=== PATIENT | female | born 1960 | race Caucasian/White ===

== ENCOUNTER 2020-12-27 19:57 | Emergency (ER) | payer MEDICAID, SELFPAY ==
--- NOTE | ~2020-12-27 | CT_ITS ---
EXAMINATION: CT ABDOMEN AND PELVIS WITHOUT CONTRAST CLINICAL INFORMATION: Right-sided abdominal pain COMPARISON: None TECHNIQUE: Multidetector volumetric imaging was performed from the superior aspect of the liver through the pubic symphysis. Sagittal and coronal reformatted images were obtained on the technologist's workstation. This CT examination was performed using dose optimization techniques as appropriate, variously including the following: *Automated exposure control *Adjustment of mA and/or kV according to patient size (this includes techniques or standardized protocols for targeted exams where dose is matched to indication/reason for exam; i.e. extremities or head) *Use of iterative reconstruction technique DLP: 1045 mGy-cm FINDINGS: LUNG BASES: Status post median sternotomy. Marked coronary calcification is present. No lung masses nodules or pleural effusions are seen. LIVER, GALLBLADDER, AND BILIARY TREE: The liver is normal in size, shape, and attenuation. No focal hepatic lesion or biliary ductal dilatation is present. The gallbladder is unremarkable with no evidence of radiopaque gallstones, gallbladder wall thickening, or obvious pericholecystic inflammatory changes. PANCREAS: Unremarkable. SPLEEN: Unremarkable. ADRENAL GLANDS: Unremarkable. KIDNEYS AND URETERS: There is a 2 mm mildly obstructing stone present in the distal left ureter at the ureterovesical junction. There is mild to moderate right-sided hydronephrosis. Within the right kidney there is a nonobstructing mid to lower pole 2 mm calculus present. No right-sided renal masses are seen. The left kidney and ureter appears normal. Some left-sided parapelvic cysts are most likely present. BLADDER: Unremarkable. GASTROINTESTINAL TRACT: The small and large bowel are unremarkable. A few colonic diverticula are present. The appendix is unremarkable. ABDOMINAL WALL: No significant hernia is appreciated. LYMPH NODES: No retroperitoneal lymphadenopathy seen. VASCULAR: Unremarkable. PELVIC VISCERA: An anteverted uterus is present. A small punctate calcification near the fundus on the right could be related to a fibroid. An abnormal adnexal mass or free intraperitoneal fluid is not present. OSSEOUS STRUCTURES: There is grade 2 anterolisthesis with forward slippage of L5 upon S1 with bilateral pars interarticularis defects at L5. CT/CT abdomen pelvis wo con IMPRESSION: 1. Tiny 2 mm obstructing right distal ureteral calculus with associated mild hydronephrosis. There is a nonobstructing additional 2 mm calculus in the right kidney. 2. Incidentally noted coronary calcification, median sternotomy, colonic diverticula, possible fibroid and grade 2 anterolisthesis of L5 upon S1.
[2020-12-27 20:12] VITALS: BP 118/86; BP 143/75; PULSE 69; PULSE 77; RESP 18; TEMP 36.7; O2SAT 96; O2SAT 98; BMI 37.0
--- NOTE | 2020-12-27 20:21 | ED.ABDPAIN ---
HPI - Abdominal Pain General Chief Complaint: Abdominal Pain Stated Complaint: abdominal pain Time Seen by Provider: 12/27/20 20:21 Source: patient Mode of arrival: ambulatory Limitations: no limitations History of Present Illness HPI narrative: Patient with right hemiparesis from CVA came from long-term for an acute onset of right mid abdominal pain started 17:00 sharp in character associated with nausea after arrival in the ER patient vomited 1 time patient never had similar pain in the past no history of gallstone or kidney stone no diarrhea no fever no chills or fever no urinary complaints Related Data Previous Rx's Medication Instructions Recorded oxycodone 5 mg tablet 5 mg PO Q6H PRN #20 tab 12/28/20 Allergies Allergy/AdvReac Type Severity Reaction Status Date / Time Penicillins Allergy Mild RASH Verified 12/27/20 20:11 Review of Systems Review of Systems Yes all other systems are reviewed and are negative Physical Exam Vital Signs: Vital Signs: Last Vital Signs Temp 98.1 F 12/27/20 20:12 Pulse 83 12/27/20 23:11 Resp 16 12/27/20 23:11 BP 116/64 12/27/20 23:11 Pulse Ox 95 12/27/20 23:11 Body Mass Index 37.0 Appearance: Alert. Oriented X3. No acute distress. Eyes: PERRLA, No Nystagmus ENT: Pharynx normal. Oral Mucosa moist Neck: Normal inspection. Neck supple. CVS: Normal heart rate and rhythm. Pulses normal. Respiratory: No respiratory distress. Equal air entry bilateral, no wheezing/rales/rhonchi Abdomen: Soft , tenderness right mid abdomen no rebound tenderness or guarding Bowel sounds are present, no mass palpable, mild right CVA tenderness Skin: Skin warm and dry. Normal skin color. Normal skin turgor. Extremities: No lower extremity edema. No calf tenderness Neuro: Oriented X 3. MDM - Abdominal Pain MDM Narrative Medical decision making narrative: Patient feeling much better now no pain at all unable to get the urine sample as she urinated in her depends only 2 mm distal right ureteric stone likely she passed will discharge patient back to long-term Differential Diagnosis Differential diagnosis: Likely acute appendicitis, calculus of kidney and diverticulitis Medical Records Attestation: I reviewed the patient's medical records. Lab Data Attestation: I reviewed the patient's lab results. Result diagrams: 12/27/20 20:55 12/27/20 20:55 Labs: Lab Results 12/27/20 12/27/20 Range/Units 20:55 20:55 WBC 13.4 H (4.8-10.8) X10*3/uL RBC 5.40 (4.20-5.50) X10*6/uL Hgb 15.5 (12.0-16.0) g/dl Hct 46.3 (37-47) % MCV 85.7 (80-98) fL MCH 28.7 (27.0-33.0) pg MCHC 33.5 (31.0-35.0) g/dl RDW 13.0 (11.0-16.0) % Plt Count 261 (160-400) X10*3/uL MPV 10.1 (9.4-12.3) fL Immature Gran % (Auto) 0.2 (0.0-0.4) % Neut % (Auto) 87.3 H (45-73) % Lymph % (Auto) 8.1 L (20-40) % Martin % (Auto) 3.9 (2-11) % Eos % (Auto) 0.2 (0-4) % Baso % (Auto) 0.3 (0-2) % Lymph # (Auto) 1.1 L (1.2-4.9) X10*3/uL Martin # (Auto) 0.5 (0.1-1.2) X10*3/uL Eos # (Auto) 0.0 (0.0-0.4) X10*3/uL Baso # (Auto) 0.0 (0.0-0.2) X10*3/uL Abs Immat Gran (auto) 0.03 (0.00-0.03) X10*3/uL Absolute Neuts (auto) 11.7 H (2.0-8.3) X10*3/uL Absolute Nucleated RBC 0.000 (0.0-0.012) X10*3/uL Nucleated RBC % (auto) 0.0 (0.0-0.2) /100WBC Sodium 140 (135-145) mmol/L Potassium 3.9 (3.3-5.1) mmol/L Chloride 105 (96-108) mmol/L Carbon Dioxide 25 (22-29) mmol/L Anion Gap 14 (12-20) BUN 20 H (9-16) mg/dL Creatinine 0.78 (0.5-1.4) mg/dL Estim Creat Clear Calc 78.9 Estimated GFR > 60 Random Glucose 106 (60-115) mg/dL Calcium 9.6 (8.4-10.2) mg/dL Total Bilirubin 1.4 H (0.0-1.0) mg/dL AST 18 (5-31) U/L ALT 20 (0-31) U/L Alkaline Phosphatase 124 H (39-117) U/L Total Protein 6.6 (6.5-8.0) g/dL Albumin 4.2 (3.5-5.0) g/dL Lipase 11 (8-78) U/L Imaging Data CT scan - abdomen: Radiologist's impression: [place] [id number] CT Scan Report Signed Patient: Rach Bettencourt MR#: [id number] : 1960 Acct:[id number] Age/Sex: 60 / F ADM Date: 12/27/20 Loc: HO.ED Attending Dr: Ordering Physician: Flaco Allred MD Date of Service: 12/27/20 Procedure(s): CT abdomen pelvis wo con Accession Number(s): [id number] cc: Flaco Allred MD~ EXAMINATION: CT ABDOMEN AND PELVIS WITHOUT CONTRAST? CLINICAL INFORMATION: Right-sided abdominal pain? COMPARISON: None? TECHNIQUE: Multidetector volumetric imaging was performed from the superior aspect of the liver through the pubic symphysis. Sagittal and coronal reformatted images were obtained on the technologist's workstation.? This CT examination was performed using dose optimization techniques as appropriate, variously including the following: *Automated exposure control *Adjustment of mA and/or kV according to patient size (this includes techniques or standardized protocols for targeted exams where dose is matched to indication/reason for exam; i.e. extremities or head) *Use of iterative reconstruction technique DLP: 1045 mGy-cm FINDINGS: LUNG BASES: Status post median sternotomy. Marked coronary calcification is present. No lung masses nodules or pleural effusions are seen.? LIVER, GALLBLADDER, AND BILIARY TREE: The liver is normal in size, shape, and attenuation. No focal hepatic lesion or biliary ductal dilatation is present. The gallbladder is unremarkable with no evidence of radiopaque gallstones, gallbladder wall thickening, or obvious pericholecystic inflammatory changes.? PANCREAS: Unremarkable.? SPLEEN: Unremarkable.? ADRENAL GLANDS: Unremarkable.? KIDNEYS AND URETERS: There is a 2 mm mildly obstructing stone present in the distal left ureter at the ureterovesical junction. There is mild to moderate right-sided hydronephrosis. Within the right kidney there is a nonobstructing mid to lower pole 2 mm calculus present. No right-sided renal masses are seen. The left kidney and ureter appears normal. Some left-sided parapelvic cysts are most likely present. BLADDER: Unremarkable.? GASTROINTESTINAL TRACT: The small and large bowel are unremarkable. A few colonic diverticula are present. The appendix is unremarkable.? ABDOMINAL WALL: No significant hernia is appreciated.? LYMPH NODES: No retroperitoneal lymphadenopathy seen. VASCULAR: Unremarkable. PELVIC VISCERA: An anteverted uterus is present. A small punctate calcification near the fundus on the right could be related to a fibroid. An abnormal adnexal mass or free intraperitoneal fluid is not present.? OSSEOUS STRUCTURES: There is grade 2 anterolisthesis with forward slippage of L5 upon S1 with bilateral pars interarticularis defects at L5.? CT/CT abdomen pelvis wo con IMPRESSION: 1.? Tiny 2 mm obstructing right distal ureteral calculus with associated mild hydronephrosis. There is a nonobstructing additional 2 mm calculus in the right kidney. 2.? Incidentally noted coronary calcification, median sternotomy, colonic diverticula, possible fibroid and grade 2 anterolisthesis of L5 upon S1.? Dictated By: TARA HARRELL MD Signed By: <Electronically signed by TARA HARRELL MD in OV> Discharge Plan Discharge Clinical Impression: Renal colic on right side Patient Disposition: Xfer SNF Transfer Details: To long-term Instructions: Renal Colic (ED) Additional Instructions: You have pain on the right side from 2 mm kidney stone which likely passed. Drink plenty of fluids. If pain comes back take pain medications. Follow-up with urologist if pain continues Prescriptions: New oxycodone 5 mg tablet 5 mg PO Q6H PRN (Reason: Pain (Scale Score 7-10)) Qty: 20 RF: 0 PMFSH Past Medical History Medical History CVA (cerebral vascular accident) Depression High cholesterol Past heart attack Surgical History Hx of tonsillectomy Social History Social History Alcohol intake: former Patient Tobacco Use Status: Former Tobacco user Advance Directives: No Advance Directives Information Provided: No Patient : No
[2020-12-27 21:01] LABS: Basophils Percent Auto 0.3 % (0-2); Eosinophils Percent Auto 0.2 % (0-4); Hematocrit 46.3 % (37-47); Hemoglobin 15.5 g/dl (12.0-16.0); Imm Gran Abs Auto 0.03 X10*3/uL (0.00-0.03); Imm Gran Pct Auto 0.2 % (0.0-0.4); Lymphocytes Absolute Auto 1.1 X10*3/uL (1.2-4.9); Lymphocytes Percent Auto 8.1 % (20-40); MANUAL DIFF FLAG NO; Mean Corpuscular HGB Conc 33.5 g/dl (31.0-35.0); Mean Corpuscular Hemoglobin 28.7 pg (27.0-33.0); Mean Corpuscular Volume 85.7 fL (80-98); Mean Platelet Volume 10.1 fL (9.4-12.3); Monocytes Absolute Auto 0.5 X10*3/uL (0.1-1.2); Monocytes Percent Auto 3.9 % (2-11); Neutrophils Absolute Auto 11.7 X10*3/uL (2.0-8.3); Neutrophils Percent Auto 87.3 % (45-73); Platelet Count 261 X10*3/uL (160-400); White Blood Count 13.4 X10*3/uL (4.8-10.8)
[2020-12-27] MEDS: 0.9 % Sodium Chloride 1,000 ML 999 ML IVCONT ×2 (21:02→23:06)
[2020-12-27] MEDS: ondansetron HCL 4 MG/2 ML VIAL IVPUSH (21:14)
[2020-12-27] MEDS: Morphine Sulfate 4 MG/ML CARTRIDGE IVPUSH (21:16)
[2020-12-27 21:37] LABS: Alanine Aminotransferase 20 U/L (0-31); Albumin Level 4.2 g/dL (3.5-5.0); Alkaline Phosphatase 124 U/L (39-117); Anion Gap 14 (12-20); Aspartate Amino Transferase 18 U/L (5-31); Bilirubin Total 1.4 mg/dL (0.0-1.0); Blood Urea Nitrogen 20 mg/dL (9-16); Calcium 9.6 mg/dL (8.4-10.2); Carbon Dioxide 25 mmol/L (22-29); Chloride 105 mmol/L (96-108); Creatinine Clr Calc Pharmacy 78.9; Estimated Glomerular Filt Rate > 60; Glucose Random 106 mg/dL (60-115); Lipase 11 U/L (8-78); Potassium 3.9 mmol/L (3.3-5.1); Sodium 140 mmol/L (135-145); Total Protein 6.6 g/dL (6.5-8.0)
--- NOTE | 2020-12-27 21:50 | PC.NURSE ---
Friend Cathryn #[phone] - would like phone call if pt is going to stay in the hospital
[2020-12-27] MEDS: Tamsulosin HCL 0.4 MG CAPSULE PO (22:29)
[2020-12-27] MEDS: Ketorolac Tromethamine 15 MG/ML VIAL IVPUSH (22:29)
[2020-12-27 23:11] VITALS: BP 116/64; PULSE 83; RESP 16; O2SAT 95
--- NOTE | 2020-12-28 01:05 | PC.NURSE ---
Pt is resting comfortable in bed and denies any pain at this time. pt is awaiting to be discharge back to facility.
[2020-12-28 01:15] VITALS: BP 111/75; PULSE 83; RESP 20; O2SAT 98
== END 2020-12-28 01:34 | disposition skilled nursing facility (03) ==
PROVIDERS: Emergency Provider Internal Medicine; PCP Family Medicine
DX: N23 Unspecified renal colic (principal); I69.351 Hemiplegia and hemiparesis following cerebral infarction affecting right dominant side
CPT/HCPCS: 36415; 74176; 80053; 83690; 85025; 96361; 96374; 96375; 99284; 99285; J1885; J2270; J2405

== ENCOUNTER 2021-10-26 11:53 | Outpatient (REF) | payer OTHER, SELFPAY ==
[2021-10-26 12:09] LABS: MANUAL DIFF FLAG NO
[2021-10-26 12:42] LABS: Basophils Absolute Auto 0.1 X10*3/uL (0.0-0.2); Basophils Percent Auto 0.7 % (0-2); Eosinophils Absolute Auto 0.1 X10*3/uL (0.0-0.4); Eosinophils Percent Auto 1.2 % (0-4); Hematocrit 44.7 % (37.0-47.0); Hemoglobin 14.6 g/dl (12.0-16.0); Imm Gran Abs Auto 0.03 X10*3/uL (0.00-0.03); Imm Gran Pct Auto 0.4 % (0.0-0.4); Lymphocytes Absolute Auto 1.7 X10*3/uL (1.2-4.9); Lymphocytes Percent Auto 21.4 % (20-40); Mean Corpuscular HGB Conc 32.7 g/dl (31.0-35.0); Mean Corpuscular Hemoglobin 28.6 pg (27.0-33.0); Mean Corpuscular Volume 87.6 fL (80.0-98.0); Mean Platelet Volume 10.7 fL (9.4-12.3); Monocytes Absolute Auto 0.5 X10*3/uL (0.1-1.2); Monocytes Percent Auto 5.5 % (2-11); Neutrophils Absolute Auto 5.8 x10*3/uL (2.0-8.3); Neutrophils Percent Auto 70.8 % (45-73); Platelet Count 236 X10*3/uL (160-400); Red Cell Distribution Width 13.8 % (11.0-16.0); White Blood Count 8.1 X10*3/uL (4.8-10.8)
[2021-10-26 12:58] LABS: Alanine Aminotransferase 16 U/L (0-31); Albumin Level 4.1 g/dL (3.5-5.0); Alkaline Phosphatase 128 U/L (39-117); Anion Gap 11 (12-20); Aspartate Amino Transferase 15 U/L (5-31); Bilirubin Total 1.1 mg/dL (0.0-1.0); Blood Urea Nitrogen 16 mg/dL (9-16); Calcium 9.4 mg/dL (8.4-10.2); Carbon Dioxide 27 mmol/L (22-29); Chloride 108 mmol/L (96-108); Cholesterol 159 mg/dL; Estimated Glomerular Filt Rate > 60; Glucose Fasting 87 mg/dL (60-99); HDL Cholesterol 58 mg/dL; LDL Cholesterol Calculated 76 mg/dl; Potassium 4.4 mmol/L (3.3-5.1); Sodium 142 mmol/L (135-145); Total Protein 6.4 g/dL (6.5-8.0); Triglycerides 126 mg/dL
[2021-10-26 13:10] LABS: Prothrombin Time 11.1 SEC (10.0-13.1)
[2021-10-26 13:22] LABS: TSH reflex Free T4 1.84 uIU/mL (0.32-4.0)
[2021-10-26 14:28] LABS: Appearance Urine HAZY; Color Urine YELLOW; Glucose Urine UA NEG (NEG); Leukocyte Esterase Urine NEG (NEG); Nitrite Urine NEG (NEG); Specific Gravity - Urine 1.025 (1.005-1.025); UACC Culture Trigger NO; Urine Blood TRACE (NEG); Urine Ketones NEG (NEG); Urine Protein NEG (NEG-TRACE)
[2021-10-26 14:35] LABS: Bacteria Urine 3+ /LPF; Squamous Epithelial Cell Urine 4+ /LPF
[2021-10-26 14:36] LABS: RBC Urine 0-2 /HPF (0); WBC Urine 0 /HPF (0-4)
[2021-11-01 16:22] LABS: Vitamin D 25-OH, D2 <4 ng/mL; Vitamin D 25-OH, D3 17 ng/mL; Vitamin D 25-OH, Total 17 ng/mL (30-100)
== END 2021-10-26 11:54 | disposition home or self-care (01) ==
LOC: HO.LAB 11:53
PROVIDERS: PCP Nurse Practitioner Family; Visit Provider Nurse Practitioner Family
DX: R58 Hemorrhage, not elsewhere classified (principal); N32.81 Overactive bladder; I25.10 Atherosclerotic heart disease of native coronary artery without angina pectoris; Z13.29 Encounter for screening for other suspected endocrine disorder; Z13.1 Encounter for screening for diabetes mellitus; Z76.89 Persons encountering health services in other specified circumstances
CPT/HCPCS: 36415; 80053; 80061; 81001; 82306; 84443; 85025; 85610

== ENCOUNTER 2021-11-27 12:48 | Outpatient (REF) | payer OTHER, SELFPAY ==
--- NOTE | ~2021-11-27 | MM_ITS ---
EXAMINATION: BONE DENSITOMETRY CLINICAL INDICATION: Asymptomatic menopausal state. COMPARISON: None (current study represents initial baseline exam). TECHNIQUE: Using a [employer] DXA System (software version: 13.1) manufactured by [employer], dual-energy x-ray absorptiometry was performed of the lumbar spine and left hip. The images are of good technical quality. Summary results are attached. FINDINGS: AP SPINE L1-L4: BMD 0.946 g/cm2, Z-score -1.3, T-score -2.0, osteopenia. LEFT FEMUR, NECK: BMD 0.771 g/cm2, Z-score -1.1, T-score -1.9, osteopenia. LEFT FEMUR, TOTAL: BMD 0.863 g/cm2, Z-score -0.6, T-score -1.1, osteopenia. IDENTIFIED RISK FACTORS: Menopause. HISTORY OF FRACTURE: None listed. MEDICATIONS: None listed. MM/XR DEXA axial skeleton IMPRESSION: 1. DIAGNOSIS: Osteopenia based on the lowest T-score value of -2.0 in the lumbar spine applying World Health Organization criteria. 2. 10-YEAR FRACTURE RISK PREDICTION, FRAX: Major osteoporotic fracture (clinical spine, forearm, hip or shoulder) 9.2%. Hip fracture 1.1%. 3. Treatment Recommendations: NOF guidelines recommend consideration for treatment in postmenopausal women and men age 50 and older presenting with the following: -A hip or vertebral (clinical or morphometric) fracture. -T-score less than or equal to -2.5 at the femoral neck or spine after appropriate evaluation to exclude secondary causes. -Low bone mass at the hip or spine and a 10-year fracture probability by FRAX of greater than or equal to 3% for hip fracture or greater than or equal to 20% for major osteoporotic fracture based on the [place] adapted WHO algorithm. 4. Other Recommendations: All treatment decisions require clinical judgment and consideration of individual patient factors, including patient preferences, comorbidities, previous drug use, risk factors not captured in the FRAX model (e.g. frailty, falls, vitamin D deficiency, increased bone turnover, interval significant decline in bone density) and possible under or overestimation of fracture risk by FRAX. Additional medical evaluation for secondary cause of low bone mineral density may be appropriate. FUTURE SCAN RECOMMENDATION: People with diagnosed cases of osteoporosis or at high risk for fracture should have regular bone mineral density tests. For patients eligible for Medicare, routine testing is allowed once every 2 years. The testing frequency can be increased to one year for patients who have rapidly progressing disease, those who are receiving or discontinuing medical therapy to restore bone mass, or have additional risk factors.
--- NOTE | ~2021-11-27 | MM_ITS ---
EXAMINATION: MM SCREENING DIGITAL BREAST TOMOSYNTHESIS, BILATERAL CLINICAL INFORMATION: Screening. Asymptomatic. The lifetime risk of breast cancer based on the Tyrer-Cuzick Model is 7.0%. COMPARISON: Mammography: December 26, 2015 and October 13, 2014 TECHNIQUE: Digital breast tomosynthesis is performed in both the craniocaudal and mediolateral oblique views along with computer-aided detection (CAD). Synthesized 2D images are generated from the tomosynthesis. FINDINGS: The breasts are almost entirely fatty (ACR BI-RADS breast composition Category a). There are no significant masses, abnormal calcifications, or other abnormalities. MM/MM tomosynthesis screening BI IMPRESSION: There are no significant changes from prior study. ASSESSMENT: BI-RADS 1: Negative RECOMMENDATION: Routine annual mammography screening. This patient's information was entered into a reminder system with a target due date for their next mammogram.
== END 2021-11-27 12:49 | disposition home or self-care (01) ==
LOC: HO.MAMMO 12:48
PROVIDERS: PCP Nurse Practitioner Family; Visit Provider Nurse Practitioner Family
DX: Z12.31 Encounter for screening mammogram for malignant neoplasm of breast (principal); Z13.820 Encounter for screening for osteoporosis; Z78.0 Asymptomatic menopausal state
CPT/HCPCS: 77063; 77067; 77080

== ENCOUNTER → 2021-12-27 10:46 | Outpatient (BNVA) | payer OTHER, SELFPAY | PROVIDERS: PCP Nurse Practitioner Family; Referring Provider Nurse Practitioner Family; Visit Provider Internal Medicine | DX: I25.10 Atherosclerotic heart disease of native coronary artery without angina pectoris (principal); I21.19 ST elevation (STEMI) myocardial infarction involving other coronary artery of inferior wall; I63.9 Cerebral infarction, unspecified; Z95.1 Presence of aortocoronary bypass graft | CPT/HCPCS: 93005; 99202 ==

== ENCOUNTER → 2022-01-30 12:54 | Outpatient (REF) | payer MEDICARE, MEDICAID, SELFPAY ==
--- NOTE | 2022-01-30 12:58 | CA_ITS ---
Transthoracic Echocardiogram Patient (Last, First, Middle): Rach Bettencourt M Gender: Female Date of : 1960 Age: 61 Procedure Date: 01/30/2022 Procedure Type: Transthoracic Echocardiogram Location: OP Height: 154.94 cm Weight: 89.36 kg BSA: 1.88 m2 Heart Rate: bpm BP: 118 / 65 mmHg Health Screener: TO Referring MD: Markie Ortega MD Line Technician: Quoc Hernandez MD Symptoms: I25.10 - Atherosclerotic heart disease of [place] coronary artery without... Study Quality: Fair/Contrast ECG Rhythm: Sinus Conclusions: - 1. [id number] LV systolic dysfunction with LVEF of 40-45% with grade 2 diastolic dysfunction with underlying wall motion abnormality suggestive prior myocardial infarction and consistent with ischemic cardiomyopathy 2. Mild mitral regurgitation 3. Normal RV systolic pressure 4. No gross pericardial effusion Findings Procedure Information Contrast agent, definity, is being given per protocol without apparent complications. Left Ventricle Normal left ventricular cavity size. There is normal left ventricular wall thickness. The left ventricular systolic function is mild to moderately decreased. The visually estimated ejection fraction is between 40-45%. Spectral Doppler is indicative of a pseudonormal filling pattern. Elevated left atrial and left ventricular end-diastolic pressures. E/E prime ratio is >15, consistent with elevated filling pressures. Evidence suggests grade II (moderate) diastolic dysfunction. Wall Motion Rest Echo Findings The entire septum, the basal inferior, and mid inferior segments are akinetic. All other scored wall segments showed normal motion. Right Ventricle Normal right ventricular cavity size. There is mildly decreased right ventricular systolic function. Atria The left atrium is normal in size. There is no evidence of interatrial shunt. The right atrium is normal in size. Aortic Valve There is mild thickening of the aortic valve. There is no aortic valve stenosis. There is no aortic valve regurgitation. Mitral Valve There is mild anterior and posterior mitral leaflet thickening. There is mild mitral valve regurgitation. There is no mitral valve stenosis. Pulmonic Valve The pulmonic valve was not well visualized. Tricuspid Valve Likely normal tricuspid valve structure and function. Great Vessels All visible segments of the aorta are normal in size. The pulmonary artery was not well visualized. Small plaque is seen in the ascending aorta. Venous The inferior vena cava is normal in size and collapses greater than 50% with inspiration. Pericardium/Pleural There is no evidence of pericardial effusion. Prior Study Comparison No prior study available for comparison. Measurements 2D Linear Measurements IVSd: 0.73 0.6-0.9/0.6-1.0 cm LVIDd: 4.80 3.9-5.3/4.2-5.9 cm LVIDd Index: 2.55 2.4-3.2/2.2-3.1 cm/m2 LVIDs: 3.51 2.0-3.6 cm LVPWd: 1.03 0.7-1.1 cm LA Diam: 4.00 2.7-3.8/3.0-4.0 cm LAIDs Index: 2.13 1.5-2.3 cm/m2 LV Mass: 178.31 67-162/88-224 g LV Mass Index: 94.84 43-95/49-115 g/m2 LVOT Diam: 2.00 3.0+(-)1.3 cm 2D Systolic Function EF 4C: 43.30 >55% EF BiP: 43.00 >55% Mitral Valve MV Pk E: 1.01 MV PK A: 0.63 MV Decel Time: 248.00 E/A: 1.60 E'Lateral: 8.16 E'Medial: 6.53 E/E' Med: 15.50 E/E' Lat: 12.40 PHT: 73.00 MVA PHT: 3.01 Decel Charl[place]: 4.07 Aortic Valve AoV Pk Igor: 1.51 AoV Mn Igor: 1.01 AoV VTI: 0.36 AoV Pk Grad: 9.00 Aov Mn Grad: 5.00 MANJINDER Cont.VTI: 2.34 LVOT LVOT Pk Igor: 1.16 LVOT Mn Igor: 0.76 LVOT VTI: 0.26 LVOT Pk Grad: 5.00 LVOT Mn Grad: 3.00 LVOT Diam: 2.00 LVOT Area: 3.14 Diastolic Function MV Pk E: 1.01 MV Pk A: 0.63 E/A: 1.60 E'Medial: 6.53 E/E' Med: 15.50 E' Laterial: 8.16 E/E' Lat: 12.40 Right Ventricle TAPSE (mm): 14.20 TVS' Igor: 7.83 Tricuspid Valve TR Pk Igor: 1.64 TR Pk Grad: 11.00 RA Press: 3.00 RVSP: 14.00 Great Vessels Aorta Sinus of Valsalva: 2.69 2.0-3.5 cm Ao Asc: 2.50 2.1-3.4 cm Updated in Other Vendor System with Status of Final Quoc Hernandez MD electronically signed on 01/30/2022 6:30:46 PM with status of Final
== END ==
LOC: HO.CARD 12:54
PROVIDERS: Visit Provider Internal Medicine
DX: I25.10 Atherosclerotic heart disease of native coronary artery without angina pectoris (principal)
CPT/HCPCS: 93306; Q9957

== ENCOUNTER → 2022-02-11 13:48 | Outpatient (BNVA) | payer MEDICARE, MEDICAID, SELFPAY | PROVIDERS: PCP Nurse Practitioner Family; Referring Provider Nurse Practitioner Family; Visit Provider Internal Medicine | DX: I25.5 Ischemic cardiomyopathy (principal); I25.10 Atherosclerotic heart disease of native coronary artery without angina pectoris; I21.19 ST elevation (STEMI) myocardial infarction involving other coronary artery of inferior wall; Z95.1 Presence of aortocoronary bypass graft; I63.9 Cerebral infarction, unspecified | CPT/HCPCS: 99212 ==

== ENCOUNTER → 2022-08-14 14:10 | Outpatient (BNVA) | payer MEDICARE, MEDICAID, SELFPAY | PROVIDERS: PCP Nurse Practitioner Family; Referring Provider Nurse Practitioner Family; Visit Provider Internal Medicine | DX: I25.5 Ischemic cardiomyopathy (principal); I21.19 ST elevation (STEMI) myocardial infarction involving other coronary artery of inferior wall; I25.10 Atherosclerotic heart disease of native coronary artery without angina pectoris; I65.23 Occlusion and stenosis of bilateral carotid arteries; I63.9 Cerebral infarction, unspecified; Z87.891 Personal history of nicotine dependence; Z98.890 Other specified postprocedural states; Z95.1 Presence of aortocoronary bypass graft | CPT/HCPCS: 99212 ==

== ENCOUNTER 2023-01-10 10:45 | Outpatient (AMB) | payer MEDICARE, MEDICAID, SELFPAY ==
[2023-01-10 10:47] VITALS: BP 100/68; PULSE 62; O2SAT 99
--- NOTE | 2023-01-10 10:47 | AM.OFFVISMDC ---
Intake Vital Signs 01/10/23 10:47 Height 5 ft 2 in BMI Reason not done Patient refused/unable BP 100/68 Blood Pressure Location Lt brachial Position Sitting Pulse 62 Pulse Source Pulse Oximeter Temp Source Skin Pulse Oximetry (%) 99 Oxygen Delivery Method Room Air Intake Visit Reasons: AWV Intake Note: Patient is here for an Annual Wellness Visit. Director Experimental Medicine Required: No Allergies Penicillins Allergy (Mild, Verified 01/10/23 11:10) RASH Medication List - Last Reconciled 01/10/23 by ELENA Moe aspirin (Adult Low Dose Aspirin) 81 mg PO DAILY atorvastatin 80 mg PO BEDTIME bisoprolol fumarate 2.5 mg (1/2 x 5 mg) PO DAILY calcium carbonate (Oyster Shell Calcium) 500 mg PO DAILY 90 days cholecalciferol (vitamin D3) 50 mcg PO DAILY losartan 25 mg PO DAILY miscellaneous medical supply 2 ea miscellaneous DAILY miscellaneous medical supply 1 ea miscellaneous DAILY miscellaneous medical supply 1 ea miscellaneous DAILY oxybutynin chloride ER 5 mg PO DAILY pantoprazole 40 mg PO DAILY sertraline 100 mg PO DAILY tizanidine 4 mg PO BID PRN HPI AWV HPI Details Patient is a 62-year-old female who presents today for initial wellness visit. Today we discussed patient's need for tetanus vaccine, patient has declined. Also discussed need for mammogram, cervical cancer screening, colon cancer screening, and diabetes screening-patient has order and she was encouraged to complete her fasting blood work. Bone density screen 11/2021 which showed osteopenia. [place] of care was reviewed with the patient and she was provided with a screening schedule. Patient has a healthcare proxy in place and she was provided with a MOLST form. [facility] Medical History Conjunctivitis ST elevation myocardial infarction (STEMI) of inferior wall Atherosclerotic cardiovascular disease Ecchymosis Encounter to establish care Depression High cholesterol Past heart attack CVA (cerebral vascular accident) Surgical History Status post aorto-coronary artery bypass graft Hx of tonsillectomy Family History Mother No problems noted. Father Heart attack Social History Housing: Apartment Alcohol intake: former Patient Tobacco Use Status: Former Tobacco user e-Cigarette/Vaping Use: Never Used service: No Current occupational status: disabled Cognitive needs: Yes (wheelchair) Hearing needs: No Vision needs: Yes (glasses) Questionnaire Medicare Wellness Checkup What [age] 65-67 What gender do you identify with?: female During the past 4 weeks, how much have you been bothered by emotional problems such as feeling anxious, depressed, irritable, sad or downhearted, and blue?: not at all During the past 4 weeks, has your physical & emotional health limited your social activities with family, friends, neighbors, or groups?: not at all During the past 4 weeks, how much bodily pain have you generally had?: very mild pain (right side ) During the past 4 weeks, was someone available to help you if you needed & wanted help?: yes, as much as I wanted During the past 4 weeks, what was the hardest physical activity you could do for at least 2 minutes?: very light Can you get to places out of walking distance without help? (For eg., can you travel alone on buses, taxis or drive your car?): No Can you go shopping for groceries or clothes without someone's help?: No Can you prepare your own meals?: No Can you do your housework without help?: No Because of any health problems, do you need the help of another person with your personal care needs such as eating, bathing, dressing or getting around the house?: Yes Can you handle your own money without help?: No During the past 4 weeks, how would you rate your health in general?: very good During the past 4 weeks how have things been going for you?: very well; could hardly better Do you always fasten your seat belt when you are in a car?: yes, usually During past 4 weeks, have you been bothered by the following: never: Falling or dizzy when standing up, Sexual problems?, Trouble eating well?, Teeth or denture problems?, Problems using the telephone? and Tiredness or fatigue? Have you fallen 2 or more times in the past year?: No Are you afraid of falling?: No Are you a smoker?: no During the past 4 weeks, how many drinks of wine, beer, or other alcoholic beverages did you have?: no alcohol at all Do you exercise for about 20 minutes 3 or more times a week?: no, I usually do not exercise this much Have you been given information to help with the following?: no: Hazards in your house that might hurt you? and no: Keeping track of your medications? How confident are you that you can control & manage most of your health problems?: very confident What is your race?: White Mini Mental State Exam (MMSE) Orientation What is the (year) (season) (date) (day) (month)?: year, season, date, day and month Score Score: 5 Activity of Daily Living Bathing - sponge bath, tub bath or shower: receives no assistance (gets in/out by self, if usual bathing means Dressing - getting clothes from closets & drawers, including inner/outer garments & fasteners.: gets clothes & gets completely dressed without help Toileting - going to the 'toilet room' for urine/bowel elimination & cleaning self/arranging clothes: goes to toilet room, cleans self, arranges clothes without help Transfer: moves in & out of bed and chair without help (may use support object) Continence: controls urination/bowel movements completely by self Feeding: feeds self without help Total Score: 0 Information obtained from: patient Using telephone: independent Traveling: dependent Shopping: needs assistance Preparing meals: needs assistance Housework: dependent Taking medicine: independent Managing money: needs assistance PHQ-9 Over the last 2 weeks, how often have you been bothered by any of the following problems? 1. Little interest or pleasure in doing things: not at all 2. Feeling down, depressed, or hopeless: not at all 3. Trouble falling or staying asleep, or sleeping too much: not at all 4. Feeling tired or having little energy: not at all 5. Poor appetite or overeating: not at all 6. Feeling bad about yourself - or that you are a failure or have let yourself or your family down: not at all 7. Trouble concentrating on things, such as reading the newspaper or watching television: not at all 8. Moving or speaking so slowly that other people could have noticed. Or the opposite - being so fidgety or restless that you have been moving around a lot more than usual: not at all 9. Thoughts that you would be better off or of hurting yourself in some way: not at all Total score: 0 Depression Screening Interpretation: Negative 19120 - PHQ-9 Billing: Yes Source: Developed by Drs. Binu Campbell, Nany Taylor, Cory Lewis and colleagues, with an educational damari from [employer]. Physical Exam Vital Signs: Last Vital Signs Pulse 62 01/10/23 10:47 BP 100/68 01/10/23 10:47 Pulse Ox 99 01/10/23 10:47 Oxygen Delivery Method Room Air 01/10/23 10:47 Const General: cooperative and no acute distress Orientation/consciousness: patient oriented x3 HEENT Other: Whisper test: pass Neuro Other: Balance: Unable to assess - wheelchair-bound Get up and walk: unable to Romberg: negative Tandem gait: unable to General: patient oriented x3 Assessment & Plan Assessment & Plan (1) Ischemic cardiomyopathy: Code(s): I25.5 - Ischemic cardiomyopathy Plan: Continue to follow-up with marketing production manager Dr. Ortega (2) Atherosclerotic cardiovascular disease: Code(s): I25.10 - Atherosclerotic heart disease of [place] coronary artery without angina pectoris Plan: Same as above Continue atorvastatin (3) Osteopenia: Code(s): M85.80 - Other specified disorders of bone density and structure, unspecified site Plan: Continue calcium and vitamin-D supplements (4) Cervical cancer screening: Code(s): Z12.4 - Encounter for screening for malignant neoplasm of cervix (5) Screening for colon cancer: Code(s): Z12.11 - Encounter for screening for malignant neoplasm of colon (6) Screening for breast cancer: Code(s): Z12.39 - Encounter for other screening for malignant neoplasm of breast (7) Screening for diabetes mellitus: Code(s): Z13.1 - Encounter for screening for diabetes mellitus Plan: Patient was encouraged to complete her fasting blood work (8) Depression: Code(s): F32.9 - Major depressive disorder, single episode, unspecified Qualifiers: Depression Type: other depression Qualified Code(s): F32.89 - Other specified depressive episodes Plan: Continue sertraline (9) High cholesterol: Code(s): E78.00 - Pure hypercholesterolemia, unspecified Plan: Patient was encouraged to complete her blood work Continue atorvastatin Low-cholesterol diet (10) Chronic systolic heart failure: Code(s): I50.22 - Chronic systolic (congestive) heart failure Plan: Continue to follow-up with marketing production manager Dr. Ortega Continue current treatment (11) GERD (gastroesophageal reflux disease): Code(s): K21.9 - Gastro-esophageal reflux disease without esophagitis Plan: Pantoprazole 40 mg daily Avoid GERD trigger foods Do not lay down 2-3 hours after evening meal (12) Medicare annual wellness visit, initial: Comment: Tdap declined. Code(s): Z00.00 - Encounter for general adult medical examination without abnormal findings Orders: Orders MM tomosynthesis screening BI Today Z12.39 - Encounter for other screening for malignant neoplasm of breast Referrals Gastroenterology Referral Z12.11 - Encounter for screening for malignant neoplasm of colon MEDICARE INTERVIEWER Referral Z12.4 - Encounter for screening for malignant neoplasm of cervix Quality Reporting (2019) Depression/Bipolar (159/160/161/177) PHQ-9: Total score: 0 Coding Level of Care Code Medicare First (G0438) Diagnoses Ischemic cardiomyopathy I25.5 Atherosclerotic cardiovascular disease I25.10 Osteopenia M85.80 Cervical cancer screening Z12.4 Screening for colon cancer Z12.11 Screening for breast cancer Z12.39 Screening for diabetes mellitus Z13.1 Other depression F32.89 Depression Type: other depression High cholesterol E78.00 Chronic systolic heart failure I50.22 GERD (gastroesophageal reflux disease) K21.9 Medicare annual wellness visit, initial Z00.00 CPT Codes Advance Care Planning - Time spent: 1-15 minutes, not on file ([id number]) Advance Care Planning Advance Care Planning discussion: Exists, not on file Date of discussion: 01/10/23 Who was present: pt and right of way worker Forms completed: None Time spent: 1-15 minutes, not on file Actual minutes spent: 3 Did not discuss due to Cultural/Spiritual beliefs: No
== END 2023-01-10 11:32 | disposition home or self-care (01) ==
PROVIDERS: PCP Nurse Practitioner Family; Visit Provider Nurse Practitioner Family
DX: Z00.00 Encounter for general adult medical examination without abnormal findings (principal); I50.22 Chronic systolic (congestive) heart failure; K21.9 Gastro-esophageal reflux disease without esophagitis; I25.5 Ischemic cardiomyopathy; I25.10 Atherosclerotic heart disease of native coronary artery without angina pectoris; M85.80 Other specified disorders of bone density and structure, unspecified site; F32.89 Other specified depressive episodes; E78.00 Pure hypercholesterolemia, unspecified
CPT/HCPCS: 1124F; G0402; G0438

== ENCOUNTER 2023-04-30 10:25 | Outpatient (AMB) | payer MEDICARE, MEDICAID, SELFPAY ==
[2023-04-30 10:32] VITALS: BP 124/68; PULSE 68; O2SAT 98
--- NOTE | 2023-04-30 10:32 | MHC.PC.OV ---
Vital Signs 04/30/23 10:32 Height 5 ft 2 in BMI Reason not done Patient refused/unable BP 124/68 Blood Pressure Location Lt brachial Position Sitting Pulse 68 Pulse Source Pulse Oximeter Pulse Oximetry (%) 98 Oxygen Delivery Method Room Air Intake Visit Reasons: 3 month follow Mixing Machine Tender Cork Rod Required: No Bakery Demonstrator: Not Required per policy Accompanied by: Self / Same As Patient Allergies Penicillins Allergy (Mild, Verified 04/30/23 10:32) RASH Medication List - Last Reconciled 04/30/23 by Brett Jiang MD aspirin (Adult Low Dose Aspirin) 81 mg PO DAILY atorvastatin 80 mg PO BEDTIME bisoprolol fumarate 2.5 mg (1/2 x 5 mg) PO DAILY calcium carbonate (Oyster Shell Calcium) 500 mg PO DAILY 90 days cholecalciferol (vitamin D3) 50 mcg PO DAILY losartan 25 mg PO DAILY miscellaneous medical supply 2 ea miscellaneous DAILY miscellaneous medical supply 1 ea miscellaneous DAILY miscellaneous medical supply 1 ea miscellaneous DAILY oxybutynin chloride ER 5 mg PO DAILY pantoprazole 40 mg PO DAILY sertraline 100 mg PO DAILY tizanidine 4 mg PO BID PRN Tobacco use date assessed: 08/28/22 Fall risk assessment: No Falls in past year Last assessed Fall Risk: 04/30/23 Dental Screening Dental Screen Date: 04/30/23 Did you have a dental visit in the last 12 months?: No Did you have a dental problem in the last 6 months where you did not have access to dental care?: No Was dental information given to patient?: Patient has dentist HPI 3 month follow HPI Details Had a CVA 4 years ago which left a right hemiparesis and she is essentially wheelchair bound; despite this she lives alone with assistance; has HTN and hyperlip on rx [facility] Medical History Conjunctivitis ST elevation myocardial infarction (STEMI) of inferior wall Atherosclerotic cardiovascular disease Ecchymosis Encounter to establish care Depression High cholesterol Past heart attack CVA (cerebral vascular accident) Surgical History Status post aorto-coronary artery bypass graft Hx of tonsillectomy Family History Mother No problems noted. Father Heart attack Social History Housing: Apartment Alcohol intake: former Patient Tobacco Use Status: Former Tobacco user e-Cigarette/Vaping Use: Never Used service: No Current occupational status: disabled Cognitive needs: Yes (wheelchair) Hearing needs: No Vision needs: Yes (glasses) Questionnaire PHQ-9 Over the last 2 weeks, how often have you been bothered by any of the following problems? 1. Little interest or pleasure in doing things: not at all 2. Feeling down, depressed, or hopeless: not at all 3. Trouble falling or staying asleep, or sleeping too much: not at all 4. Feeling tired or having little energy: not at all 5. Poor appetite or overeating: not at all 6. Feeling bad about yourself - or that you are a failure or have let yourself or your family down: not at all 7. Trouble concentrating on things, such as reading the newspaper or watching television: not at all 8. Moving or speaking so slowly that other people could have noticed. Or the opposite - being so fidgety or restless that you have been moving around a lot more than usual: not at all 9. Thoughts that you would be better off or of hurting yourself in some way: not at all Total score: 0 Depression Screening Interpretation: Negative Depression Screening Done: Yes 05032 - PHQ-9 Billing: Yes Source: Developed by Drs. Binu Campbell, Nany Taylor, Cory Lewis and colleagues, with an educational damari from [employer] Thrive Questionnaire Date Thrive assessed: 04/30/23 I am a: Patient What is your living situation today?: I have a steady place to live Within the past 12 months, did the food you bought not last and you didn't have the money to get more?: Never true Within the past 12 months, did you worry whether your food would run out before you got money to buy more?: Never true Do you have trouble paying for medicines?: No Do you have trouble getting transportation to medical appointments?: No Do you have trouble paying your heating and electricity bill?: No Do you have trouble taking care of your child, family member or friend?: No Do you have trouble with day-to-day activities such as bathing, preparing meals, shopping, managing finances, etc.?: No Are you currently unemployed and looking for a job?: No Are you interested in more education?: No Please select the resources that you would like help with: None AUDIT C Alcohol Use Questionnaire (AUDIT-C) 1. How often do you have a drink containing alcohol?: Never 2. How many drinks containing alcohol do you have on a typical day when you are drinking?: 1 or 2 (0) 3. How often do you have six or more drinks on one occasion?: Never Total Score: 0 Score Reviewed/Action Taken: No JAMES-7 AMB Questionnaire JAMES-7 Date JAMES - 7 assessed: 04/30/23 Feeling nervous, anxious, or on edge: 0 = Not at all Not being able to stop or control worryin = Not at all Worrying too much about different things: 0 = Not at all Trouble relaxin = Not at all Being so restless that it is hard to sit still: 0 = Not at all Becoming easily annoyed or irritable: 0 = Not at all Feeling afraid as if something awful might happen: 0 = Not at all Total JAMES-7 score (0-4 normal; 5-9 mild; 10-14 moderate; 15-21 severe): 0 Source: Developed by Drs. Binu Campbell, Nany Taylor, Cory Lewis and colleagues, with an educational damari from [employer] Review of Systems Const Denies chills, Denies headache(s) and Denies weight loss ENT Denies headache(s) Card Denies chest pain, Denies syncope, Denies irregular heart rhythm and Denies dyspnea Resp Denies chest congestion, Denies cough and Denies dyspnea GI Denies abdominal pain, Denies change in stool character, Denies nausea and Denies vomiting Musc Denies deformity and Denies joint swelling Neuro Denies syncope and Denies headache(s) Physical exam (Primary Care) Vital Signs: Last Vital Signs Pulse 68 04/30/23 10:32 BP 124/68 04/30/23 10:32 Pulse Ox 98 04/30/23 10:32 Oxygen Delivery Method Room Air 04/30/23 10:32 Tobacco/Smoking Status: Tobacco use Status Tobacco use date assessed 08/28/22 04/30/23 10:38 Patient Tobacco Use Status Former Tobacco user 04/30/23 10:38 e-Cigarette/Vaping Use Never Used 04/30/23 10:38 PHQ-9: PHQ-9 Score PHQ-9: Total score 0 04/30/23 10:38 Depression Screening Interpretation: Negative Thrive Assessment: Date of Thrive Assessment Date Thrive assessed 04/30/23 04/30/23 10:38 Const General: cooperative, comfortable, no acute distress and alert Neck Neck: Yes no lymphadenopathy Thyroid: Thyroid normal Resp Effort & Inspection: normal respiratory effort Auscultation: clear to auscultation bilaterally Percussion: percussion normal Cardio Jugular venous distension: no JVD Palpation: normal PMI Rate: regular rate Rhythm: regular rhythm Heart sounds: S1 normal heart sound present and S2 normal heart sound present GI Inspection: Yes normal to inspection Palpation (GI): No hepatosplenomegaly present Skin General skin exam: no rashes or lesions noted Neuro Other: right hemiparesis Extrem General: Yes no clubbing, cyanosis or edema Assessment and Plan Assessment & Plan (1) Hemiparesis: Code(s): G81.90 - Hemiplegia, unspecified affecting unspecified side Plan: stable (2) High cholesterol: Code(s): E78.00 - Pure hypercholesterolemia, unspecified Plan: due for labs (3) Hypertension: Code(s): I10 - Essential (primary) hypertension Plan: stable; same rx Orders: Orders Lipid Panel Today E78.5 - Hyperlipidemia, unspecified Complete Blood Count Auto Diff Today D64.9 - Anemia, unspecified Thyroid Stimulating Hormone Today E03.9 - Hypothyroidism, unspecified Comprehensive [place]. Panel Fast Today N28.9 - Disorder of kidney and ureter, unspecified Medications: Refilled tizanidine 4 mg PO BID PRN 60 tabs 1RF muscle spasticity M62.838 - Other muscle spasm Coding Level of Care Code Est Pt Level 4 (36357) Diagnoses Hemiparesis G81.90 High cholesterol E78.00 Hypertension I10
== END 2023-04-30 10:49 | disposition home or self-care (01) ==
PROVIDERS: PCP Nurse Practitioner Family; Visit Provider Internal Medicine
DX: G81.91 Hemiplegia, unspecified affecting right dominant side (principal); E78.00 Pure hypercholesterolemia, unspecified; I10 Essential (primary) hypertension
CPT/HCPCS: 99214

== ENCOUNTER 2023-06-26 13:45 | Outpatient (REF) | payer MEDICARE, MEDICAID, SELFPAY ==
[2023-07-04 05:58] LABS: HPV mRNA E6/E7 rflx Detected (Not Detected)
[2023-07-04 06:09] LABS: HPV 16 RNA NOT DETECTED (NOT DETECTED)
== END 2023-06-26 13:46 | disposition home or self-care (01) ==
LOC: HO.LNP 13:45
PROVIDERS: PCP Nurse Practitioner Family; Visit Provider Advanced Practice Midwife
DX: Z01.419 Encounter for gynecological examination (general) (routine) without abnormal findings (principal); Z86.73 Personal history of transient ischemic attack (TIA), and cerebral infarction without residual deficits
CPT/HCPCS: 87624; 87625; 88142; G0101

== ENCOUNTER 2023-06-26 13:45 | Outpatient (AMB) | payer MEDICARE, MEDICAID, SELFPAY ==
--- NOTE | 2023-06-26 13:50 | MHC.OFFVIS ---
Intake Vital Signs 06/26/23 13:51 Height 5 ft 2 in BMI Reason not done Patient refused/unable BP 120/80 Intake Visit Reasons: New patient Annual Allergies Penicillins Allergy (Mild, Verified 06/26/23 13:54) RASH HPI HPI Comments History of Present Illness Details She is a postmenopausal woman presenting for her annual discovery guide examination. She is doing well with no concerns. Attempting to eat a healthy diet with calcium and vitamin D and stays active with exercise. Currently sexually active. Denies any vaginal dryness or irritation. STI testing offered; she accepts. Last pap smear; []. Last mammogram; []. Colonoscopy is UTD. Denies any family history of breast, ovarian or colon cancer. [facility] Medical History Conjunctivitis ST elevation myocardial infarction (STEMI) of inferior wall Atherosclerotic cardiovascular disease Ecchymosis Encounter to establish care Depression High cholesterol Past heart attack CVA (cerebral vascular accident) Surgical History Status post aorto-coronary artery bypass graft Hx of tonsillectomy Family History Mother No problems noted. Father Heart attack Social History Housing: Apartment Alcohol intake: former Patient Tobacco Use Status: Former Tobacco user e-Cigarette/Vaping Use: Never Used service: No Current occupational status: disabled Cognitive needs: Yes (wheelchair) Hearing needs: No Vision needs: Yes (glasses) Review of Systems Const All systems reviewed & are unremarkable except as noted in HPI and below Reports as per HPI Eyes Reports no additional complaints ENT Reports no additional complaints Card Reports no additional complaints Resp Reports no additional complaints GI Reports as per HPI and Reports no additional complaints Reports as per HPI Musc Reports no additional complaints Skin/Breast Reports as per HPI Neuro Reports no additional complaints Psych Reports no additional complaints Endo Reports no additional complaints Otis/Lymph Reports no additional complaints Aller/Immun Reports no additional complaints Physical Exam Vital Signs: Last Vital Signs BP 120/80 06/26/23 13:51 Const General: cooperative, healthy appearing, no acute distress, well developed and alert Orientation/consciousness: patient oriented x3 HEENT Head: Yes normal to inspection Eyes General: appearance normal, both eyes and all related structures Neck Neck: Yes normal visual inspection Thyroid: Thyroid normal Chest Chest palpation & inspection: normal inspection of the chest and other (no puckering, dimpling, peau de orange, retraction, discharge, masses) Breast/axilla inspection: normal inspection of the breasts Breast/axilla palpation: normal palpation of the breasts Resp Effort & Inspection: normal respiratory effort GI Inspection: Yes normal to inspection Palpation (GI): Soft to palpation Rectal Exam - Female: deferred General: Yes bladder normal to palpation External Female Exam: normal external appearance and normal appearance of the urethra Speculum Exam - Vagina: normal appearance of the vagina, normal palpation and normal vaginal discharge Speculum Exam - Cervix: normal appearance of the cervix and normal palpation Bimanual exam- vagina & uterus: normal bimanual exam, normal palpation, uterine size normal, bladder normal to palpation, normal palpation and non-tender Bimanual Exam- Adnexa, other: no masses Skin General skin exam: no rashes or lesions noted Rashes: no rashes Neuro General: patient oriented x3 Cognition (Neuro): normal cognition Extrem General: Yes normal to inspection Psych Attitude: cooperative Thought process: Normal thought process present Assessment & Plan Assessment & Plan (1) Encounter for well woman exam with routine gynecological exam: Code(s): Z01.419 - Encounter for gynecological examination (general) (routine) without abnormal findings Plan Discussed: Current recommendations for pap smears per ASCCP guidelines. Breast awareness, periodic self breast exams and yearly mammogram. Maintain a healthy lifestyle, well balanced diet including Calcium 1,200 mg and Vitamin D 600 IU daily, and routine exercise. Use of condoms for STI if indicated. Contact the office with any postmenopausal bleeding. Patient verbalizes understanding and agrees to the plan of care. She was given opportunity to ask questions and all questions were answered to the best of my ability. RTO in 1 year for annual discovery guide exam. This note is constructed using voice recognition software. While every effort has been made to ensure accuracy, roadway technician errors may have been included. Orders: Orders MM tomosynthesis screening BI 06/26/23 Z12.31 - Encounter for screening mammogram for malignant neoplasm of breast Pap Smear 06/26/23 Z12.4 - Encounter for screening for malignant neoplasm of cervix Coding Diagnoses Encounter for well woman exam with routine gynecological exam Z01.419
[2023-06-26 13:51] VITALS: BP 120/80
--- NOTE | 2023-06-26 13:51 | MHC.OFFVIS ---
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 She is doing well with no ammonia refrigeration technician concerns. Decrease in her appetite. History of a stroke uses a wheelchair for mobility. Has contractures of her right extremities and muscle spasms. Not sexually active. Denies any vaginal dryness or irritation. Last pap smear; 5 or 6 years ago at another organization, records unavailable today. Patient reports were normal. Last mammogram; not UTD. Colonoscopy is UTD. Denies any family history of breast, ovarian or colon cancer. [facility] Medical History Conjunctivitis ST elevation myocardial infarction (STEMI) of inferior wall Atherosclerotic cardiovascular disease Ecchymosis Encounter to establish care Depression High cholesterol Past heart attack CVA (cerebral vascular accident) Surgical History Status post aorto-coronary artery bypass graft Hx of tonsillectomy Family History Mother No problems noted. Father Heart attack Social History Housing: Apartment Alcohol intake: former Patient Tobacco Use Status: Former Tobacco user e-Cigarette/Vaping Use: Never Used service: No Current occupational status: disabled Cognitive needs: Yes (wheelchair) Hearing needs: No Vision needs: Yes (glasses) Female Reproductive History Menstrual Age of Menarche: 11 control method: none Total pregnancies: 0 Date of last pap smear: 09/12/04 (negative) Date of Mammogram: 11/27/21 Date of last Bone Density Screenin11/27/21 Review of Systems Const All systems reviewed & are unremarkable except as noted in HPI and below Reports as per HPI Eyes Reports no additional complaints ENT Reports no additional complaints Card Reports no additional complaints Resp Reports no additional complaints GI Reports as per HPI and Reports no additional complaints Reports as per HPI Musc Reports no additional complaints Skin/Breast Reports as per HPI Neuro Reports no additional complaints Psych Reports no additional complaints Endo Reports no additional complaints Otis/Lymph Reports no additional complaints Aller/Immun Reports no additional complaints Physical Exam Vital Signs: Last Vital Signs BP 120/80 06/26/23 13:51 Const General: cooperative, healthy appearing, no acute distress, well developed and alert Orientation/consciousness: patient oriented x3 HEENT Head: Yes normal to inspection Eyes General: appearance normal, both eyes and all related structures Neck Neck: Yes normal visual inspection Thyroid: Thyroid normal Chest Chest palpation & inspection: normal inspection of the chest and other (no puckering, dimpling, peau de orange, retraction, discharge, masses) Breast/axilla inspection: normal inspection of the breasts Breast/axilla palpation: normal palpation of the breasts Resp Effort & Inspection: normal respiratory effort GI Inspection: Yes normal to inspection Palpation (GI): Soft to palpation Rectal Exam - Female: deferred Other: Tense with exam, difficult to relax, contraction of muscles and moving throughout the exam General: Yes bladder normal to palpation External Female Exam: normal external appearance and normal appearance of the urethra Speculum Exam - Vagina: normal appearance of the vagina, normal palpation, normal vaginal discharge and vagina atrophic Speculum Exam - Cervix: normal appearance of the cervix and normal palpation Bimanual exam- vagina & uterus: normal bimanual exam, normal palpation, uterine size normal, bladder normal to palpation, normal palpation and non-tender Bimanual Exam- Adnexa, other: no masses Skin General skin exam: no rashes or lesions noted Rashes: no rashes Neuro General: patient oriented x3 Cognition (Neuro): normal cognition Extrem Other: Hemiparesis right side General: Yes normal to inspection Psych Attitude: cooperative Thought process: Normal thought process present Assessment & Plan Assessment & Plan (1) Encounter for well woman exam with routine gynecological exam: Code(s): Z01.419 - Encounter for gynecological examination (general) (routine) without abnormal findings Plan Discussed: Current recommendations for pap smears per ASCCP guidelines. Breast awareness, periodic self breast exams and yearly mammogram. Maintain a healthy lifestyle, well balanced diet. Contact the office with any postmenopausal bleeding. Patient verbalizes understanding and agrees to the plan of care. She was given opportunity to ask questions and all questions were answered to the best of my ability. RTO in 1-2 year for annual ammonia refrigeration technician exam. This note is constructed using voice recognition software. While every effort has been made to ensure accuracy, household appliance repairer errors may have been included. Orders: Orders MM tomosynthesis screening BI Today Z12.31 - Encounter for screening mammogram for malignant neoplasm of breast Pap Smear Today Z12.4 - Encounter for screening for malignant neoplasm of cervix Coding Level of Care Code New Pt Prev Care 40-64y(01956) Diagnoses Encounter for well woman exam with routine gynecological exam Z01.419
== END 2023-06-26 14:43 | disposition home or self-care (01) ==
LOC: HO.HWS 13:46
PROVIDERS: PCP Nurse Practitioner Family; Visit Provider Advanced Practice Midwife
DX: Z01.419 Encounter for gynecological examination (general) (routine) without abnormal findings (principal)
CPT/HCPCS: G0101

== ENCOUNTER → 2023-07-24 13:30 | Outpatient (BNV) | payer MEDICARE, MEDICAID, SELFPAY | PROVIDERS: PCP Internal Medicine; Visit Provider Radiology Diagnostic Radiology | DX: Z12.31 Encounter for screening mammogram for malignant neoplasm of breast (principal) | CPT/HCPCS: 77063; 77067 ==

== ENCOUNTER 2023-07-24 13:35 | Outpatient (REF) | payer MEDICARE, MEDICAID, SELFPAY ==
--- NOTE | ~2023-07-24 | MM_ITS ---
EXAMINATION: MM SCREENING DIGITAL BREAST TOMOSYNTHESIS, BILATERAL CLINICAL INFORMATION: Screening. Asymptomatic. COMPARISON: Mammography: This study is compared with prior exams dating back to 2016. TECHNIQUE: Digital breast tomosynthesis is performed in both the craniocaudal and mediolateral oblique views along with computer-aided detection (CAD). Synthesized 2D images are generated from the tomosynthesis. FINDINGS: The breasts are almost entirely fatty (ACR BI-RADS breast composition Category a). There are no significant masses, abnormal calcifications, or other abnormalities. MM/MM tomosynthesis screening BI IMPRESSION: No mammographic evidence of malignancy. ASSESSMENT: BI-RADS BI-RADS 1 - Negative RECOMMENDATION: Routine annual mammography screening. 1 year F/U This examination should not preclude the clinical evaluation of a suspicious palpable abnormality. This patient's information was entered into a reminder system with a target due date for their next mammogram.
== END 2023-07-24 13:36 | disposition home or self-care (01) ==
LOC: HO.MAMMO 13:35
PROVIDERS: PCP Internal Medicine; Visit Provider Advanced Practice Midwife
DX: Z12.31 Encounter for screening mammogram for malignant neoplasm of breast (principal)
CPT/HCPCS: 77063; 77067

== ENCOUNTER → 2023-08-04 12:58 | Outpatient (REF) | payer MEDICARE, MEDICAID, SELFPAY ==
--- NOTE | 2023-08-04 13:01 | CA_ITS ---
Transthoracic Echocardiogram Patient (Last, First, Middle): Rach Bettencourt M Gender: Female Date of : 1960 Age: 62 Procedure Date: 08/04/2023 Procedure Type: Transthoracic Echocardiogram Location: OP Height: 154.94 cm Weight: 90.27 kg BSA: 1.89 m2 Heart Rate: 61 bpm BP: 110 / 70 mmHg Image Consultant: JUAN Beard MD: Markie Ortega MD Log Driver: Quoc Hernandez MD Symptoms: I25.5 - Ischemic cardiomyopathy Study Quality: Fair w/Contrast ECG Rhythm: Sinus Conclusions: - 1. [id number] LV systolic dysfunction with LVEF of 40 45% with pseudonormal filling pattern with underlying regional wall motion abnormality consistent with ischemic cardiomyopathy 2. Normal cardiac valvular Dopplers 3. Technically limited study otherwise Findings Procedure Information Contrast agent, definity, is being given per protocol without apparent complications. Left Ventricle Normal left ventricular cavity size. The left ventricular systolic function is mild to moderately decreased. The visually estimated ejection fraction is between 40-45%. There is evidence of regional wall motion abnormalities. Spectral Doppler is indicative of a pseudonormal filling pattern. E/E prime ratio is between 8 and 15 consistent with indeterminate filling pressures. Wall Motion Rest Echo Findings The inferoseptal wall, the basal inferior, mid inferior, apical septum, and mid anteroseptal segments are hypokinetic. The basal anteroseptal segment is akinetic. All other scored wall segments showed normal motion. Atria The left atrium is likely dilated. Interatrial shunt cannot be excluded. The right atrium was not well visualized. Aortic Valve The aortic valve structure and function is likely normal. There is mild calcification of the aortic valve. There is no aortic valve stenosis. There is no aortic valve regurgitation. Mitral Valve There is mild anterior and posterior mitral leaflet thickening. There is mild mitral annular calcification. There is trace mitral valve regurgitation. There is no mitral valve stenosis. Tricuspid Valve Likely normal tricuspid valve structure and function. Tricuspid regurgitation envelope is inadequate for calculation of right ventricular systolic pressure. Normal right atrial pressure. Great Vessels The aorta was not well visualized. The pulmonary artery was not well visualized. Venous The inferior vena cava is normal in size and collapses greater than 50% with inspiration. Pericardium/Pleural The pericardium was not well visualized. Measurements 2D Linear Measurements IVSd: 0.92 0.6-0.9/0.6-1.0 cm LVIDd: 4.35 3.9-5.3/4.2-5.9 cm LVIDd Index: 2.30 2.4-3.2/2.2-3.1 cm/m2 LVIDs: 2.76 2.0-3.6 cm LVPWd: 0.96 0.7-1.1 cm LA Diam: 3.70 2.7-3.8/3.0-4.0 cm LAIDs Index: 1.96 1.5-2.3 cm/m2 LV Mass: 165.75 67-162/88-224 g LV Mass Index: 87.70 43-95/49-115 g/m2 LVOT Diam: 1.90 3.0+(-)1.3 cm 2D Systolic Function EF 4C: 39.70 >55% EF 2C: 45.20 >55% EF BiP: 41.90 >55% Mitral Valve MV Pk E: 1.12 MV PK A: 0.91 MV Decel Time: 257.00 E/A: 1.20 E'Lateral: 9.57 E'Medial: 7.51 E/E' Med: 14.90 E/E' Lat: 11.70 PHT: 75.00 MVA PHT: 2.93 Decel [place]: 4.36 Aortic Valve AoV Pk Igor: 1.64 AoV Mn Igor: 1.11 AoV VTI: 0.37 AoV Pk Grad: 11.00 Aov Mn Grad: 6.00 MANJINDER Cont.VTI: 2.46 LVOT LVOT Pk Igor: 1.43 LVOT Mn Igor: 0.91 LVOT VTI: 0.32 LVOT Pk Grad: 8.00 LVOT Mn Grad: 4.00 LVOT Diam: 1.90 LVOT Area: 2.84 Diastolic Function MV Pk E: 1.12 MV Pk A: 0.91 E/A: 1.20 E'Medial: 7.51 E/E' Med: 14.90 E' Laterial: 9.57 E/E' Lat: 11.70 Right Ventricle TAPSE (mm): 9.99 TVS' Igor: 8.59 Great Vessels Aorta Sinus of Valsalva: 2.70 2.0-3.5 cm Ao Asc: 2.50 2.1-3.4 cm Pulmonary Valve PV Pk Igor: 0.96 Peak PV Grad: 4.00 Updated in Other Vendor System with Status of Final Quoc Hernandez MD electronically signed on 08/05/2023 11:15:31 AM with status of Final
== END ==
LOC: HO.CARD 12:58
PROVIDERS: PCP Internal Medicine; Visit Provider Internal Medicine
DX: I65.23 Occlusion and stenosis of bilateral carotid arteries (principal)
CPT/HCPCS: 93306; Q9957

== ENCOUNTER → 2023-08-04 13:01 | Outpatient (BNV) | payer MEDICARE, MEDICAID, SELFPAY | PROVIDERS: PCP Internal Medicine; Visit Provider Internal Medicine Cardiovascular Disease | DX: I25.5 Ischemic cardiomyopathy (principal) | CPT/HCPCS: 93306 ==

== ENCOUNTER 2023-08-08 14:14 | Outpatient (REF) | payer MEDICARE, MEDICAID, SELFPAY ==
--- NOTE | ~2023-08-08 | US_ITS ---
EXAMINATION: US PELVIS CLINICAL INFORMATION: Abnormal Pap smear, 62-year-old postmenopausal. COMPARISON: None available. TECHNIQUE: Ultrasound of the pelvis is performed using both transabdominal and transvaginal transducers along with Doppler. Transvaginal imaging is performed due to inadequate visualization transabdominally. FINDINGS: Uterus: The uterus is anteverted and measures 6.6 x 2.7 x 3.9 cm. The double wall endometrial thickness is 4 mm. Small volume fluid and cystic areas in the endometrium are noted. The uterus is smooth in contour and has normal myometrial echogenicity. No visible fibroid. Adnexa: Ovaries are not visualized. No large adnexal mass. US/US pelvic and transvaginal IMPRESSION: * Small volume fluid and cystic areas in the endometrium are noted. The endometrium measures 4 mm in thickness, within normal limits for a postmenopausal patient. Recommend sonohysterogram or endometrial biopsy. * Ovaries are not visualized. No large adnexal mass.
== END 2023-08-08 14:15 | disposition home or self-care (01) ==
LOC: HO.US 14:14
PROVIDERS: PCP Internal Medicine; Visit Provider Advanced Practice Midwife
DX: R87.619 Unspecified abnormal cytological findings in specimens from cervix uteri (principal)
CPT/HCPCS: 76830; 76856

== ENCOUNTER 2023-08-11 09:20 | Outpatient (AMB) | payer MEDICARE, MEDICAID, SELFPAY ==
[2023-08-11 09:21] VITALS: BP 116/72; PULSE 69; O2SAT 97
--- NOTE | 2023-08-11 09:21 | MHC.PC.OV ---
Vital Signs 08/11/23 09:21 Height 5 ft 2 in BMI Reason not done Patient refused/unable BP 116/72 Blood Pressure Location Lt brachial Position Sitting Pulse 69 Pulse Source Pulse Oximeter Pulse Oximetry (%) 97 Oxygen Delivery Method Room Air Intake Visit Reasons: 3 month follow up Intake Note: Patient is here to follow up Checkout Operator Required: No Allergies Penicillins Allergy (Mild, Verified 08/11/23 09:21) RASH Medication List - Last Reconciled 08/11/23 by Brett Jiang MD aspirin (Adult Low Dose Aspirin) 81 mg PO DAILY atorvastatin 80 mg PO BEDTIME bisoprolol fumarate 2.5 mg (1/2 x 5 mg) PO DAILY calcium carbonate (Oyster Shell Calcium) 500 mg PO DAILY 90 days cholecalciferol (vitamin D3) 50 mcg PO DAILY losartan 25 mg PO DAILY miscellaneous medical supply 2 ea miscellaneous DAILY miscellaneous medical supply 1 ea miscellaneous DAILY miscellaneous medical supply 1 ea miscellaneous DAILY pantoprazole 40 mg PO DAILY sertraline 100 mg PO DAILY tizanidine 4 mg PO BID PRN Tobacco use date assessed: 08/11/23 Fall risk assessment: No Falls in past year Last assessed Fall Risk: 08/11/23 Dental Screening Dental Screen Date: 04/30/23 HPI 3 month follow up HPI Details hyperlip depression on rx; doing well; hasa uti PFSH Medical History (Updated 08/11/23 @ 10:13 by Brett Jiang MD) Abnormal Pap smear of cervix Conjunctivitis ST elevation myocardial infarction (STEMI) of inferior wall Atherosclerotic cardiovascular disease Ecchymosis Encounter to establish care Depression High cholesterol Past heart attack CVA (cerebral vascular accident) Surgical History Status post aorto-coronary artery bypass graft Hx of tonsillectomy Family History Mother No problems noted. Father Heart attack Social History Housing: Apartment Alcohol intake: former Patient Tobacco Use Status: Former Tobacco user e-Cigarette/Vaping Use: Never Used service: No Current occupational status: disabled Cognitive needs: Yes (wheelchair) Hearing needs: No Vision needs: Yes (glasses) Female Reproductive History Menstrual Age of Menarche: 11 Questionnaire Thrive Questionnaire Date Thrive assessed: 08/11/23 I am a: Patient What is your living situation today?: I have a steady place to live Within the past 12 months, did the food you bought not last and you didn't have the money to get more?: Never true Within the past 12 months, did you worry whether your food would run out before you got money to buy more?: Never true Do you have trouble paying for medicines?: No Do you have trouble getting transportation to medical appointments?: No Do you have trouble paying your heating and electricity bill?: No Do you have trouble taking care of your child, family member or friend?: No Do you have trouble with day-to-day activities such as bathing, preparing meals, shopping, managing finances, etc.?: No Are you currently unemployed and looking for a job?: No Are you interested in more education?: No Please select the resources that you would like help with: None Currently or been in a relationship where the following occur: no concerns reported THRIVE Score: 0 AUDIT C Alcohol Use Questionnaire (AUDIT-C) 1. How often do you have a drink containing alcohol?: Never 2. How many drinks containing alcohol do you have on a typical day when you are drinking?: 1 or 2 (0) 3. How often do you have six or more drinks on one occasion?: Never Total Score: 0 Score Reviewed/Action Taken: No JAMES-7 AMB Questionnaire JAMES-7 Date JAMES - 7 assessed: 04/30/23 Source: Developed by Drs. Binu Campbell, Nany Taylor, Cory Lewis and colleagues, with an educational damari from [employer]. Review of Systems Const Denies chills, Denies headache(s) and Denies weight loss ENT Denies headache(s) Card Denies chest pain, Denies syncope, Denies irregular heart rhythm and Denies dyspnea Resp Denies chest congestion, Denies cough and Denies dyspnea GI Denies abdominal pain, Denies change in stool character, Denies nausea and Denies vomiting Musc Denies deformity and Denies joint swelling Neuro Denies syncope and Denies headache(s) Physical exam (Primary Care) Vital Signs: Last Vital Signs Pulse 69 08/11/23 09:21 BP 116/72 08/11/23 09:21 Pulse Ox 97 08/11/23 09:21 Oxygen Delivery Method Room Air 08/11/23 09:21 Tobacco/Smoking Status: Tobacco use Status Tobacco use date assessed 08/11/23 08/11/23 09:27 Patient Tobacco Use Status Former Tobacco user 08/11/23 09:27 e-Cigarette/Vaping Use Never Used 08/11/23 09:27 Thrive Assessment: Date of Thrive Assessment Date Thrive assessed 08/11/23 08/11/23 09:27 Currently or been in a relationship where the following occur: no concerns reported Const General: cooperative, comfortable, no acute distress and alert Neck Neck: Yes no lymphadenopathy Thyroid: Thyroid normal Resp Effort & Inspection: normal respiratory effort Auscultation: clear to auscultation bilaterally Percussion: percussion normal Cardio Jugular venous distension: no JVD Palpation: normal PMI Rate: regular rate Rhythm: regular rhythm Heart sounds: S1 normal heart sound present and S2 normal heart sound present GI Inspection: Yes normal to inspection Palpation (GI): No hepatosplenomegaly present Skin General skin exam: no rashes or lesions noted Extrem General: Yes no clubbing, cyanosis or edema Assessment and Plan Assessment & Plan (1) High cholesterol: Code(s): E78.00 - Pure hypercholesterolemia, unspecified Plan: stable; need labs (2) Depression: Code(s): F32.A - Depression, unspecified Plan: stable (3) UTI (urinary tract infection): Code(s): N39.0 - Urinary tract infection, site not specified Plan: take rx Medications: New sulfamethoxazole-trimethoprim 800-160 mg (Bactrim DS) 1 tab PO BID 10 tabs 0RF Coding Level of Care Code Est Pt Level 4 (23343) Diagnoses High cholesterol E78.00 Depression F32.A UTI (urinary tract infection) N39.0
== END 2023-08-11 09:41 | disposition home or self-care (01) ==
PROVIDERS: PCP Internal Medicine; Visit Provider Internal Medicine
DX: E78.00 Pure hypercholesterolemia, unspecified (principal); F32.A Depression, unspecified; N39.0 Urinary tract infection, site not specified
CPT/HCPCS: 99214

== ENCOUNTER 2023-08-12 13:16 | Outpatient (AMB) | payer MEDICARE, MEDICAID, SELFPAY ==
[2023-08-12 13:40] VITALS: BP 120/60; PULSE 62; BMI 36.4
--- NOTE | 2023-08-12 13:40 | MHC.OFFVIS ---
Intake Vital Signs 08/12/23 13:40 Height 5 ft 2 in Weight 199 lb BMI 36.4 BP 120/60 Blood Pressure Location Lt brachial Position Sitting Pulse 62 Intake Visit Reasons: 1 yr s/p echo Keg Washer Required: No Accompanied by: Self / Same As Patient Allergies Penicillins Allergy (Mild, Verified 08/11/23 09:21) RASH Medication List - Last Reconciled 08/12/23 by Markie Ortega MD aspirin (Adult Low Dose Aspirin) 81 mg PO DAILY atorvastatin 80 mg PO BEDTIME bisoprolol fumarate 2.5 mg (1/2 x 5 mg) PO DAILY calcium carbonate (Oyster Shell Calcium) 500 mg PO DAILY 90 days cholecalciferol (vitamin D3) 50 mcg PO DAILY losartan 25 mg PO DAILY miscellaneous medical supply 2 ea miscellaneous DAILY miscellaneous medical supply 1 ea miscellaneous DAILY miscellaneous medical supply 1 ea miscellaneous DAILY pantoprazole 40 mg PO DAILY sertraline 100 mg PO DAILY sulfamethoxazole-trimethoprim 800-160 mg (Bactrim DS) 1 tab PO BID tizanidine 4 mg PO BID PRN HPI HPI Comments History of Present Illness Details Rach returns for follow-up regarding coronary disease. She was hospitalized in July of 2019 at [facility] for late presentation inferior STEMI. Suspected free wall rupture and had hemopericardium. Found to have acute RCA occlusion as well as chronic occlusion of LAD and moderate lesion in the distal circumflex. Then IABP was placed and she was started on pressors. Remained critically ill. Underwent emergent surgery including CABG as well as patch in the LV wall rupture. In the postoperative period, she also developed a stroke. Then 1 further hospitalization for sternal wound dehiscence for which she underwent debridement and wound VAC placement. She comes in a wheelchair. Overall, generally seems to be doing okay. Lives by herself. No close family nearby and sister is in [place]. Never and does not have any children either. [facility] Medical History (Updated 08/11/23 @ 10:13 by Brett Jiang MD) Abnormal Pap smear of cervix Conjunctivitis ST elevation myocardial infarction (STEMI) of inferior wall Atherosclerotic cardiovascular disease Ecchymosis Encounter to establish care Depression High cholesterol Past heart attack CVA (cerebral vascular accident) Surgical History Status post aorto-coronary artery bypass graft Hx of tonsillectomy Family History Mother No problems noted. Father Heart attack Social History Housing: Apartment Alcohol intake: former Patient Tobacco Use Status: Former Tobacco user e-Cigarette/Vaping Use: Never Used service: No Current occupational status: disabled Cognitive needs: Yes (wheelchair) Hearing needs: No Vision needs: Yes (glasses) Female Reproductive History Menstrual Age of Menarche: 11 Review of Systems Const All systems reviewed & are unremarkable except as noted in HPI and below Reports as per HPI and Reports no additional complaints Eyes Reports as per HPI and Denies no additional complaints ENT Denies no additional complaints and Reports as per HPI Card Reports as per HPI, Reports no additional complaints, Denies acrocyanosis, Denies chest pain, Denies leg edema, Denies lightheadedness, Denies palpitations and Denies dyspnea Resp Reports as per HPI, Denies no additional complaints and Denies dyspnea GI Reports as per HPI and Denies no additional complaints Reports as per HPI Musc Reports no additional complaints and Reports as per HPI Skin/Breast Reports system reviewed and no additional complaints, except as documented Neuro Reports no additional complaints and Reports as per HPI Psych Reports no additional complaints and Reports as per HPI Endo Reports no additional complaints, Reports as per HPI and Denies palpitations Otis/Lymph Reports no additional complaints and Reports as per HPI Aller/Immun Reports no additional complaints and Reports as per HPI Physical Exam Vital Signs: Last Vital Signs Pulse 62 08/12/23 13:40 BP 120/60 08/12/23 13:40 BMI result Body Mass Index 36.4 Const General: comfortable and no acute distress Orientation/consciousness: patient oriented x3 HEENT Other: Unremarkable Head: Yes normal to inspection Neck Neck: Yes normal visual inspection Chest Chest palpation & inspection: normal inspection of the chest Resp Auscultation: clear to auscultation bilaterally Cardio Palpation: normal PMI Heart sounds: S1 normal heart sound present, S2 normal heart sound present, no gallops, no murmurs and no rubs GI Palpation (GI): Soft to palpation Back/Spine/Pelvis Other: unremarkable Skin General skin exam: no rashes or lesions noted Neuro General: patient oriented x3 Extrem General: Yes normal to inspection Psych Mental Status: mental status grossly normal Office Procedures EKG Details: EKG with sinus rhythm at 62/Min; can not exclude old anterior/inferior infarct[place]. [id number], Complete Assessment & Plan Assessment & Plan (1) Atherosclerotic cardiovascular disease: Code(s): I25.10 - Atherosclerotic heart disease of [place] coronary artery without angina pectoris (2) ST elevation myocardial infarction (STEMI) of inferior wall: Code(s): I21.19 - ST elevation (STEMI) myocardial infarction involving other coronary artery of inferior wall (3) Status post aorto-coronary artery bypass graft: Code(s): Z95.1 - Presence of aortocoronary bypass graft (4) Ischemic cardiomyopathy: Code(s): I25.5 - Ischemic cardiomyopathy (5) CVA (cerebral vascular accident): Comment: hx of CVA 2019 Code(s): I63.9 - Cerebral infarction, unspecified Plan Overall, late presentation inferior STEMI with cardiac rupture and hemopericardium, status post CABG; postoperative stroke; MRI brain at that time with large acute left posterior cerebral artery infarct with mass effect. Echocardiogram with LVEF of 40-45% with wall motion abnormalities related to underlying coronary disease. Clinically, no symptoms of angina or congestive heart failure. Continue aspirin. Continue bisoprolol and losartan. Advised her to get labs done. Continue statins. LDL 76 mg/dL. Triglycerides 126 mg/dL. We will see her back in 1 year. In the interim, she will call with concerns. Coding Level of Care Code Est Pt Level 4 (70427) Diagnoses Atherosclerotic cardiovascular disease I25.10 ST elevation myocardial infarction (STEMI) of inferior wall I21.19 Status post aorto-coronary artery bypass graft Z95.1 Ischemic cardiomyopathy I25.5 CVA (cerebral vascular accident) I63.9 CPT Codes EKG - CPT: 43109-[id number], Complete ([id number])
== END 2023-08-12 14:02 | disposition home or self-care (01) ==
PROVIDERS: Visit Provider Internal Medicine
DX: I25.10 Atherosclerotic heart disease of native coronary artery without angina pectoris (principal); I21.19 ST elevation (STEMI) myocardial infarction involving other coronary artery of inferior wall; Z95.1 Presence of aortocoronary bypass graft; I25.5 Ischemic cardiomyopathy; I63.9 Cerebral infarction, unspecified
CPT/HCPCS: 93010; 99214

== ENCOUNTER → 2023-08-12 13:16 | Outpatient (BNVA) | payer MEDICARE, MEDICAID, SELFPAY | PROVIDERS: Visit Provider Internal Medicine | DX: I25.10 Atherosclerotic heart disease of native coronary artery without angina pectoris (principal); I25.5 Ischemic cardiomyopathy; Z95.1 Presence of aortocoronary bypass graft; I25.2 Old myocardial infarction; Z86.73 Personal history of transient ischemic attack (TIA), and cerebral infarction without residual deficits | CPT/HCPCS: 93005; 99212 ==

== ENCOUNTER 2023-08-19 12:40 | Outpatient (AMB) | payer MEDICARE, MEDICAID, SELFPAY ==
--- NOTE | 2023-08-19 12:54 | A.OFFVIS_ITS ---
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 Ultrasound reveals small fluid and cystic areas of the endometrium. Patient has not had any postmenopausal bleeding. History of stroke, right side not not functional, lower limb spasms. The purpose of the EMB to rule out any pathology including atypical, hyperplasia or cancer cells of the uterus. She was counseled regarding anticipatory guidance for the procedure including the risks for pain, infection, bleeding, perforation, potential injury to the tissues may include the cervix, uterus, tubes, bladder and bowels. These injuries may include further treatment and evaluation including surgery, blood transfusions, antibiotics, hospitalizations and anesthesia. Permanent injury and scarring can occur. Option for hysteroscopy under anesthesia reviewed, risk of anesthesia and other complications associated were discussed. She would prefer to have an in office procedure today. She was consented for the procedure, and the consent forms were signed. She is agreeable to have the procedure today. All questions were answered. [facility] Medical History (Updated 08/19/23 @ 14:08 by Gaviota Garrett CNM) Abnormal Pap smear of cervix Conjunctivitis ST elevation myocardial infarction (STEMI) of inferior wall Atherosclerotic cardiovascular disease Ecchymosis Encounter to establish care Depression High cholesterol Past heart attack CVA (cerebral vascular accident) Surgical History Status post aorto-coronary artery bypass graft Hx of tonsillectomy Family History Mother No problems noted. Father Heart attack Social History Housing: Apartment Alcohol intake: former Patient Tobacco Use Status: Former Tobacco user e-Cigarette/Vaping Use: Never Used service: No Current occupational status: disabled Cognitive needs: Yes (wheelchair) Hearing needs: No Vision needs: Yes (glasses) Female Reproductive History Menstrual Age of Menarche: 11 Review of Systems Const All systems reviewed & are unremarkable except as noted in HPI and below Physical Exam Vital Signs: Last Vital Signs BP 118/70 08/19/23 12:55 Const General: cooperative, healthy appearing and no acute distress Orientation/consciousness: patient oriented x3 GI Inspection: Yes normal to inspection and Yes obesity Rectal Exam - Female: visual inspection normal Other: Physical limitations with positioning despite 2 staff members supporting and assisting her. Patient extremely tense with attempting to visualize the cervix with the speculum, difficult for her to relax and release her clenching muscles, bled slightly from micro tears on the vaginal wall due to significant atrophic changes. External Female Exam: normal appearance of the urethra Speculum Exam - Vagina: normal appearance of the vagina, normal vaginal discharge and vagina atrophic Neuro General: patient oriented x3 Results Reviewed Results Reviewed: [address] [address] Ultrasound Report Signed Patient: Rach Bettencourt MR#: [id number] : 1960 Acct:[id number] Age/Sex: 62 / F ADM Date: 08/08/23 Loc: HO.US Attending Dr: Gaviota Garrett CNM Ordering Physician: Gaviota Garrett CNM Date of Service: 08/08/23 Procedure(s): US pelvic and transvaginal Accession Number(s): [id number] cc: Brett Jiang MD; Gaviota Garrett CNM~ EXAMINATION: US PELVIS CLINICAL INFORMATION: Abnormal Pap smear, 62-year-old postmenopausal. COMPARISON: None available. TECHNIQUE: Ultrasound of the pelvis is performed using both transabdominal and transvaginal transducers along with Doppler. Transvaginal imaging is performed due to inadequate visualization transabdominally. FINDINGS: Uterus: The uterus is anteverted and measures 6.6 x 2.7 x 3.9 cm. The double wall endometrial thickness is 4 mm. Small volume fluid and cystic areas in the endometrium are noted. The uterus is smooth in contour and has normal myometrial echogenicity. No visible fibroid. Adnexa: Ovaries are not visualized. No large adnexal mass. US/US pelvic and transvaginal IMPRESSION: * Small volume fluid and cystic areas in the endometrium are noted. The endometrium measures 4 mm in thickness, within normal limits for a postmenopausal patient. Recommend sonohysterogram or endometrial biopsy. * Ovaries are not visualized. No large adnexal mass. Dictated By: Janice Roberson MD Signed By: <Electronically signed by Janice Roberson MD in OV> 08/13/23 1142 DD/ 1500 TD/TT: Marketing Services Manager: Assessment & Plan Assessment & Plan (1) Abnormal Pap smear of cervix: Comment: HPV positive, elevated estrogen Code(s): R87.619 - Unspecified abnormal cytological findings in specimens from cervix uteri Category: Medical Qualifiers: Abnormal Pap type: other Qualified Code(s): R87.618 - Other abnormal cytological findings on specimens from cervix uteri (2) Abnormal endometrial ultrasound: Code(s): R93.5 - Abnormal findings on diagnostic imaging of other abdominal regions, including retroperitoneum Plan Due to the limitations of physical ability to cooperate fully with the endometrial biopsy procedure in office the procedure was not completed. Advised to make a consult with Dr. Craft to discuss her options for hysteroscopy procedure under anesthesia. All of her questions and concerns were addressed to the best of my ability. She is agreeable to the plan of care. This note is constructed using voice recognition software. While every effort has been made to ensure accuracy, talent director errors may have been included. Coding Level of Care Code Est Pt Level 3 (11477) Diagnoses Other abnormal cytological finding of specimen from cervix R87.618 Abnormal Pap type: other Abnormal endometrial ultrasound R93.5
[2023-08-19 12:55] VITALS: BP 118/70
== END 2023-08-19 15:41 | disposition home or self-care (01) ==
LOC: HO.HWS 12:40
PROVIDERS: PCP Internal Medicine; Visit Provider Advanced Practice Midwife
DX: R87.618 Other abnormal cytological findings on specimens from cervix uteri (principal); R93.5 Abnormal findings on diagnostic imaging of other abdominal regions, including retroperitoneum
CPT/HCPCS: 99213

== ENCOUNTER → 2023-08-19 12:40 | Outpatient (BNVA) | payer MEDICARE, MEDICAID, SELFPAY | PROVIDERS: PCP Internal Medicine; Visit Provider Advanced Practice Midwife | DX: R87.618 Other abnormal cytological findings on specimens from cervix uteri (principal); R93.5 Abnormal findings on diagnostic imaging of other abdominal regions, including retroperitoneum; Z71.2 Person consulting for explanation of examination or test findings | CPT/HCPCS: 99212 ==

== ENCOUNTER 2023-09-30 11:57 | Outpatient (REF) | payer MEDICARE, MEDICAID, SELFPAY | END 2023-09-30 11:58 | disposition home or self-care (01) | LOC: HO.LNP 11:57 | PROVIDERS: PCP Internal Medicine; Visit Provider Obstetrics & Gynecology | DX: R87.618 Other abnormal cytological findings on specimens from cervix uteri (principal); R93.5 Abnormal findings on diagnostic imaging of other abdominal regions, including retroperitoneum | CPT/HCPCS: 58100; 88305; 99212 ==

== ENCOUNTER 2023-09-30 11:57 | Outpatient (AMB) | payer MEDICARE, MEDICAID, SELFPAY ==
--- NOTE | 2023-09-30 12:00 | A.OFFVIS_ITS ---
Vital Signs 09/30/23 12:09 BP 110/64 Intake Visit Reasons: consult for hysterescopy Allergies Penicillins Allergy (Mild, Verified 08/19/23 12:54) RASH HPI Comments Details: Presenting referred from Gaviota Garrett regarding abnormal endometrium by ultrasound, endometrial fluid 4 mm and cystic areas. Pap smear showed elevated estrogen, negative for intraepithelial lesions, HPV E6/E7 positive, HPV 16/18/40 5- [facility] Medical History (Updated 09/30/23 @ 12:19 by Gómez Craft MD) Abnormal Pap smear of cervix Conjunctivitis ST elevation myocardial infarction (STEMI) of inferior wall Atherosclerotic cardiovascular disease Ecchymosis Encounter to establish care Depression High cholesterol Past heart attack CVA (cerebral vascular accident) Surgical History Status post aorto-coronary artery bypass graft Hx of tonsillectomy Family History Mother No problems noted. Father Heart attack Social History Housing: Apartment Alcohol intake: former Patient Tobacco Use Status: Former Tobacco user e-Cigarette/Vaping Use: Never Used service: No Current occupational status: disabled Cognitive needs: Yes (wheelchair) Hearing needs: No Vision needs: Yes (glasses) Female Reproductive History Menstrual Age of Menarche: 11 Review of Systems Const All systems reviewed & are unremarkable except as noted in HPI and below Physical Exam Vital Signs: Last Vital Signs BP 110/64 09/30/23 12:09 General: Yes no CVA tenderness External Female Exam: normal external appearance and normal appearance of the ur ethra Speculum Exam - Vagina: normal appearance of the vagina, normal palpation, no lesions and no masses Speculum Exam - Cervix: normal appearance of the cervix, normal palpation, no lesions, no masses and nontender Bimanual exam- vagina & uterus: normal bimanual exam, normal palpation, uterine size normal, normal palpation, uterine shape normal, No Cervical tenderness present and non-tender Bimanual Exam- Adnexa, other: normal adnexae Back/Spine/Pelvis Back: no CVA tenderness Office Procedures Endometrial Biopsy Details: The patient was counseled regarding the indication and benefits of endometrial sampling to rule out endometrial pathology including not limited to endometrial hyperplasia or endometrial cancer and others; The alternatives (Either do nothi ng vs. hysteroscopy D&C) & the risks were discussed with the patient including but not limited: pain, uterine perforation, bleeding, infection, possible injury to bladder, bowel, ureter, possible need for blood transfusion with all its possible risks. The patient verbalized understanding all questions answered and signed consent. The patient was placed into the dorsal lithotomy position; a speculum was inserted in the vagina. Using aseptic technique for the procedure, the cervix was cleansed with Betadine. The anterior lip of the cervix was grasped with a single tooth tenaculum. The uterus was sounded to 6 cm with a 4 mm Pipelle was used. Tissues samples were obtained and placed in formalin, in a patient labeled container and sent to the pathology department. At the end of the procedure, there was minimal bleeding noted The patient tolerated the procedure well and was discharged in good condition with the following instructions: Nothing in the vagina until the bleeding stops. No sex until the bleeding stops, to call if any of the following occurs: fever (>100.4), flu-like symptoms, abdominal pain, heavy bleeding, four smelling vaginal discharge. The patient was instructed to schedule a Follow up appointment in 2 weeks to discuss pathology results of the biopsy and treatment options. This note was generated with a voice recognition program. Some errors may have been overlooked during the review of this note. Sometimes these errors may affect the content or meaning of a given sentence. [id number] Biopsy Assessment & Plan Assessment & Plan (1) Abnormal Pap smear of cervix: Comment: HPV E6/E7 positive, elevated estrogen HPV 16/18/45 negative Code(s): R87.619 - Unspecified abnormal cytological findings in specimens from cervix uteri Category: Medical Qualifiers: Abnormal Pap type: other Qualified Code(s): R87.618 - Other abnormal cytological findings on specimens from cervix uteri Plan: Since Pap smear was negative for intraepithelial lesion and Since HPV 16/18 are negative, recommended co testing in 1 year, the patient is scheduled for repeat co testing in 06/30/2024 and she is aware of the appointment (2) Abnormal ultrasound of endometrium: Code(s): R93.5 - Abnormal findings on diagnostic imaging of other abdominal regions, including retroperitoneum Category: Medical Plan: Discussed with the patient the finding abnormal endometrium by ultrasound showing endometrial fluid, cystic areas in addition to signs of elevated estro gen on Pap smear, recommended endometrial sampling to rule out endometrial pathology including hyperplasia and/or malignancy. Recommended to the patient that the next step is an endometrial sampling via hysteroscopy D&C possible polypectomy versus endometrial biopsy to r/o endometrial pathology including hyperplasia or cancer. All the pros and cons risks and benefits of each approach were discussed with the patient, endometrial biopsy being less invasive, office procedure with less sensitivity and inability diagnose a polyp and removal versus hysteroscopy done under anesthesia more invasive more sensitive to endometrial cancer and possibility of diagnosing and endometrial polyp with the possibility of polypectomy. All questions were answered pt verbalized understanding and decided to proceed with endometrial biopsy. EMB done, see procedure note Orders: Orders AMB Endometrial Biopsy Today R93.5 - Abnormal findings on diagnostic imaging of other abdominal regions, including retroperitoneum Coding Level of Care Code Est Pt Level 3 (00948) Procedure Only Diagnoses Other abnormal cytological finding of specimen from cervix R87.618 Abnormal Pap type: other Abnormal ultrasound of endometrium R93.5 CPT Codes Endometrial Biopsy - CPT: 51450-[id number] Biopsy ([id number])
[2023-09-30 12:09] VITALS: BP 110/64
== END 2023-09-30 13:13 | disposition home or self-care (01) ==
PROVIDERS: PCP Internal Medicine; Visit Provider Obstetrics & Gynecology
DX: R87.618 Other abnormal cytological findings on specimens from cervix uteri (principal); R93.5 Abnormal findings on diagnostic imaging of other abdominal regions, including retroperitoneum
CPT/HCPCS: 58100; 99213

== ENCOUNTER 2023-10-02 14:30 | Outpatient (AMB) | payer MEDICARE, MEDICAID, SELFPAY ==
--- NOTE | 2023-10-02 14:30 | A.OFFVIS_ITS ---
Intake Visit Reasons: Tv 2-3 follow up EMB Allergies Penicillins Allergy (Mild, Verified 08/19/23 12:54) RASH HPI Comments Details: The patient schedule a telehealth visit after endometrial biopsy. The patient has no complaints, no vaginal bleeding, no feverishness chills or abdominal pain. The endometrial biopsy pathology report showed the following: Endometrium, biopsy: Scant benign atrophic endometrium and benign endocervical glandular and squamous epithelium; no atypia or carcinoma (see comment). Comment: The findings do not explain an abnormal endometrial ultrasound [facility] Medical History Abnormal Pap smear of cervix Conjunctivitis ST elevation myocardial infarction (STEMI) of inferior wall Atherosclerotic cardiovascular disease Ecchymosis Encounter to establish care Depression High cholesterol Past heart attack CVA (cerebral vascular accident) Surgical History Status post aorto-coronary artery bypass graft Hx of tonsillectomy Family History Mother No problems noted. Father Heart attack Social History Housing: Apartment Alcohol intake: former Patient Tobacco Use Status: Former Tobacco user e-Cigarette/Vaping Use: Never Used service: No Current occupational status: disabled Cognitive needs: Yes (wheelchair) Hearing needs: No Vision needs: Yes (glasses) Female Reproductive History Menstrual Age of Menarche: 11 Review of Systems Const All systems reviewed & are unremarkable except as noted in HPI and below Reports as per HPI and Reports no additional complaints GI Reports no additional complaints Reports no additional complaints Telehealth Telehealth Telehealth Platform: Telephone Location of provider rendering services: practice address Location of patient: address on file Patient Identification confirmed using: Name, : Yes Telehealth method: video Patient verbally consented to treatment: Yes Patient verbally consented to billing insurance company: Yes Patient informed of any privacy concerns related to visit: Yes Assessment & Plan Assessment & Plan (1) Abnormal ultrasound of endometrium: Code(s): R93.5 - Abnormal findings on diagnostic imaging of other abdominal regions, including retroperitoneum Category: Medical Plan: Discussed with the patient the results of the endometrial biopsy showing benign atrophic endometrium and benign endocervical glandular and squamous epithelium; no atypia or carcinoma in addition explained to the patient the pathologist comment stating that the findings do not explain an abnormal endometrial ultrasound. Discussed with the patient the negative predictive value, positive predictive value, Sensitivity, specificity of using ultrasound measurement of endometrial stripe to detecting endometrial pathology including hyperplasia , polyp or cancer were discussed with the patient. Recommended to the patient that the next step is an endometrial sampling via hysteroscopy D&C possible polypectomy versus endometrial biopsy to r/o endometrial pathology including hyperplasia or cancer. All the pros and cons risks and benefits of each approach were discussed with the patient, endometrial biopsy being less invasive, office procedure with less sensitivity and inability diagnose a polyp and removal versus hysteroscopy done under anesthesia more invasive more sensitive to endometrial cancer and possibility of diagnosing and endometrial polyp with the possibility of polypectomy. All questions were answered pt verbalized understanding and decided to proceed with hysteroscopy D&C possible polypectomy/myomectomy I spent a total of 20 minutes reviewing the chart, talking to the patient via phone and documenting in the medical record. Coding Level of Care Code Tele Est Pt Level 1 (06261) Diagnoses Abnormal ultrasound of endometrium R93.5
== END 2023-10-02 15:49 | disposition home or self-care (01) ==
LOC: HO.HWS 14:30
PROVIDERS: PCP Internal Medicine; Visit Provider Obstetrics & Gynecology
DX: R93.5 Abnormal findings on diagnostic imaging of other abdominal regions, including retroperitoneum (principal)
CPT/HCPCS: 99211

== ENCOUNTER → 2023-10-02 14:30 | Outpatient (BNVA) | payer MEDICARE, MEDICAID, SELFPAY | PROVIDERS: PCP Internal Medicine; Visit Provider Obstetrics & Gynecology ==

== ENCOUNTER 2023-10-13 13:21 | Outpatient (AMB) | payer MEDICARE, MEDICAID, SELFPAY ==
--- NOTE | 2023-10-13 13:41 | MHC.OFFVIS ---
Vital Signs 10/13/23 13:57 Height 5 ft 2 in Weight 198 lb 6.656 oz BMI 36.3 BP 128/64 Intake Visit Reasons: pre op ok per Heidy Allergies Penicillins Allergy (Mild, Verified 08/19/23 12:54) RASH HPI Comments Details: The patient is presenting after endometrial biopsy. The patient has no complaints, no vaginal bleeding, no feverishness chills or abdominal pain. The endometrial biopsy pathology report showed the following: Endometrium, biopsy: Scant benign atrophic endometrium and benign endocervical glandular and squamous epithelium; no atypia or carcinoma (see comment). Comment: The findings do not explain an abnormal endometrial ultrasound Pelvic ultrasound done in 08/19 showed the following: Uterus: The uterus is anteverted and measures 6.6 x 2.7 x 3.9 cm. The double wall endometrial thickness is 4 mm. Small volume fluid and cystic areas in the endometrium are noted. The uterus is smooth in contour and has normal myometrial echogenicity. No visible fibroid. Adnexa: Ovaries are not visualized. No large adnexal mass. [facility] Medical History Abnormal Pap smear of cervix Conjunctivitis ST elevation myocardial infarction (STEMI) of inferior wall Atherosclerotic cardiovascular disease Ecchymosis Encounter to establish care Depression High cholesterol Past heart attack CVA (cerebral vascular accident) Surgical History Status post aorto-coronary artery bypass graft Hx of tonsillectomy Family History Mother No problems noted. Father Heart attack Social History Housing: Apartment Alcohol intake: former Patient Tobacco Use Status: Former Tobacco user e-Cigarette/Vaping Use: Never Used service: No Current occupational status: disabled Cognitive needs: Yes (wheelchair) Hearing needs: No Vision needs: Yes (glasses) Female Reproductive History Menstrual Age of Menarche: 11 Review of Systems Const All systems reviewed & are unremarkable except as noted in HPI and below Reports as per HPI and Reports no additional complaints GI Reports no additional complaints Reports no additional complaints Assessment & Plan Assessment & Plan (1) Abnormal ultrasound of endometrium: Code(s): R93.5 - Abnormal findings on diagnostic imaging of other abdominal regions, including retroperitoneum Category: Medical Plan: Discussed with the patient the results of the pathology endometrial biopsy . Discussed with the patient the sensitivity, specificity, positive and negative predictive value, of endometrial biopsy in detecting endometrial pathology including but not limited to endometrial hyperplasia, cancer and other pathology; discussed with the patient options of treatment including diagnostic hysteroscopy/D&C/possible polypectomy , repeat endometrial biopsy were expectant management. All pros and cons, risks and benefits of each approach were discussed with the patient, the patient decided to proceed with hysteroscopy D&C possible polypectomy/myomectomy. Since the patient has complex medical history will refer the patient to her primary care for preop medical clearance. Instructions given the patient to call after medical clearance to schedule a preop appointment for hysteroscopy D&C possible polypectomy. All questions answered and the patient verbalized understanding and agreed with the plan. Coding Level of Care Code Est Pt Level 3 (66359) Diagnoses Abnormal ultrasound of endometrium R93.5
[2023-10-13 13:57] VITALS: BP 128/64; BMI 36.3
== END 2023-10-13 14:56 | disposition home or self-care (01) ==
LOC: HO.HWS 13:21
PROVIDERS: PCP Internal Medicine; Visit Provider Obstetrics & Gynecology
DX: R93.5 Abnormal findings on diagnostic imaging of other abdominal regions, including retroperitoneum (principal)
CPT/HCPCS: 99213

== ENCOUNTER → 2023-10-13 13:21 | Outpatient (BNVA) | payer MEDICARE, MEDICAID, SELFPAY | PROVIDERS: PCP Internal Medicine; Visit Provider Obstetrics & Gynecology | DX: R93.5 Abnormal findings on diagnostic imaging of other abdominal regions, including retroperitoneum (principal) | CPT/HCPCS: 99212 ==

== ENCOUNTER 2023-10-28 12:21 | Outpatient (AMB) | payer MEDICARE, MEDICAID, SELFPAY ==
[2023-10-28 12:38] VITALS: BP 112/60; PULSE 60; O2SAT 97
--- NOTE | 2023-10-28 12:38 | MHC.PC.OV ---
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 Accompanied by: Self / Same As Patient Allergies Penicillins Allergy (Mild, Verified 10/28/23 12:39) RASH Medication List - Last Reconciled 10/28/23 by Brett Jiang MD aspirin (Adult Low Dose Aspirin) 81 mg PO DAILY atorvastatin 80 mg PO BEDTIME bisoprolol fumarate 2.5 mg (1/2 x 5 mg) PO DAILY calcium carbonate (Oyster Shell Calcium) 500 mg PO DAILY 90 days cholecalciferol (vitamin D3) 50 mcg PO DAILY losartan 25 mg PO DAILY miscellaneous medical supply 2 ea miscellaneous DAILY miscellaneous medical supply 1 ea miscellaneous DAILY miscellaneous medical supply 1 ea miscellaneous DAILY pantoprazole 40 mg PO DAILY sertraline 100 mg PO DAILY sulfamethoxazole-trimethoprim 800-160 mg (Bactrim DS) 1 tab PO BID tizanidine 4 mg PO BID PRN Tobacco use date assessed: 08/11/23 Fall risk assessment: No Falls in past year Last assessed Fall Risk: 10/28/23 Dental Screening Dental Screen Date: 04/30/23 HPI [facility] (possible polyp) hysteroscopy October HPI Details Having uterine surgery; 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 Father Heart attack Social History Housing: Apartment Alcohol intake: former Patient Tobacco Use Status: Former Tobacco user e-Cigarette/Vaping Use: Never Used Second Hand Smoke Exposure: No service: No Current occupational status: disabled Cognitive needs: Yes (wheelchair) Hearing needs: No Vision needs: Yes (glasses) Female Reproductive History Menstrual Age of Menarche: 11 Questionnaire Thrive Questionnaire Date Thrive assessed: 08/11/23 JAMES-7 AMB Questionnaire JAMES-7 Date JAMES - 7 assessed: 04/30/23 Source: Developed by Drs. Binu Campbell, Nany Taylor, Cory Lewis and colleagues, with an educational damari from [employer]. Review of Systems Const Denies chills, Denies fatigue, Denies headache(s) and Denies weight loss Eyes Denies change in vision, Denies diplopia and Denies eye pain ENT Denies vertigo, Denies dizziness, Denies headache(s) and Denies nasal discharge Card Denies chest pain, Denies rapid heart rate and Denies dyspnea on exertion Resp Denies chest congestion, Denies cough, Denies pain with cough and Denies dyspnea on exertion GI Denies abdominal pain, Denies hematochezia and Denies change in bowel habits Musc Denies myalgias, Denies arthralgias and Denies joint swelling Skin/Breast Denies lesions and Denies unusual bruising Neuro Denies vertigo, Denies dizziness, Denies headache(s) and Denies focal weakness Endo Denies fatigue Physical exam (Primary Care) Vital Signs: Last Vital Signs Pulse 60 10/28/23 12:38 BP 112/60 10/28/23 12:38 Pulse Ox 97 10/28/23 12:38 Oxygen Delivery Method Room Air 10/28/23 12:38 Tobacco/Smoking Status: Tobacco use Status Tobacco use date assessed 08/11/23 10/28/23 12:45 Patient Tobacco Use Status Former Tobacco user 10/28/23 12:45 e-Cigarette/Vaping Use Never Used 10/28/23 12:45 Thrive Assessment: Date of Thrive Assessment Date Thrive assessed 08/11/23 10/28/23 12:45 Const General: cooperative, healthy appearing and no acute distress Orientation/consciousness: oriented to person, oriented to place and oriented to time HENMT Head: Yes normal to inspection, Yes normocephalic and Yes atraumatic Mouth: Normal oral and palatal mucosa present and tongue normal Throat: Yes posterior oropharynx normal and Yes uvula midline Eyes General: appearance normal, both eyes and all related structures Neck Neck: Yes normal visual inspection, Yes full ROM and Yes no lymphadenopathy Thyroid: Thyroid normal Carotids: normal carotid upstroke Chest Chest palpation & inspection: normal inspection of the chest Resp Effort & Inspection: normal respiratory effort and able to speak in complete sentences Auscultation: clear to auscultation bilaterally Cardio Jugular venous distension: no JVD Palpation: normal PMI Rate: regular rate Rhythm: regular rhythm Heart sounds: S1 normal heart sound present and S2 normal heart sound present GI Inspection: Yes normal to inspection Palpation (GI): Soft to palpation and No hepatosplenomegaly present Auscultation: normal bowel sounds General: Yes no CVA tenderness Back/Spine/Pelvis Back: no CVA tenderness Skin General skin exam: no rashes or lesions noted Neuro General: oriented to person, oriented to place and oriented to time Extrem General: Yes normal to inspection and Yes full ROM Assessment and Plan Assessment & Plan (1) Preop exam for internal medicine: Code(s): Z01.818 - Encounter for other preprocedural examination Plan: inermediate risk for cardiovascular complications; labs and ekg ordered (2) Hypertension: Code(s): I10 - Essential (primary) hypertension Plan: stable (3) Ischemic cardiomyopathy: Code(s): I25.5 - Ischemic cardiomyopathy Plan: would recommend seeing cardiology for clearance (4) Hemiparesis: Code(s): G81.90 - Hemiplegia, unspecified affecting unspecified side Plan: stable s/p cva Orders: Orders ECG 12 lead EKG Today R93.5 - Abnormal findings on diagnostic imaging of other abdominal regions, including retroperitoneum Basic Metabolic Panel Today Z01.818 - Encounter for other preprocedural examination Complete Blood Count Auto Diff Today Z13.0 - Encounter for screening for diseases of the blood and blood-forming organs and certain disorders involving the immune mechanism Coding Level of Care Code Est Pt Level 4 (10771) Diagnoses Preop exam for internal medicine Z01.818 Hypertension I10 Ischemic cardiomyopathy I25.5 Hemiparesis G81.90
== END 2023-10-28 12:57 | disposition home or self-care (01) ==
PROVIDERS: PCP Internal Medicine; Visit Provider Internal Medicine
DX: I10 Essential (primary) hypertension (principal); Z01.818 Encounter for other preprocedural examination; I25.5 Ischemic cardiomyopathy; G81.90 Hemiplegia, unspecified affecting unspecified side
CPT/HCPCS: 99214

== ENCOUNTER 2023-11-24 11:16 | Outpatient (AMB) | payer MEDICARE, MEDICAID, SELFPAY ==
[2023-11-24 11:26] VITALS: BP 110/68; PULSE 60; O2SAT 97
--- NOTE | 2023-11-24 11:26 | MHC.PC.OV ---
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 Allergies Penicillins Allergy (Mild, Verified 11/24/23 11:27) RASH Medication List - Last Reconciled 11/25/23 by Brett Jiang MD aspirin (Adult Low Dose Aspirin) 81 mg PO DAILY atorvastatin 80 mg PO BEDTIME bisoprolol fumarate 2.5 mg (1/2 x 5 mg) PO DAILY calcium carbonate (Oyster Shell Calcium) 500 mg PO DAILY 90 days cholecalciferol (vitamin D3) 50 mcg PO DAILY losartan 25 mg PO DAILY miscellaneous medical supply 2 ea miscellaneous DAILY miscellaneous medical supply 1 ea miscellaneous DAILY miscellaneous medical supply 1 ea miscellaneous DAILY pantoprazole 40 mg PO DAILY sertraline 100 mg PO DAILY sulfamethoxazole-trimethoprim 800-160 mg (Bactrim DS) 1 tab PO BID tizanidine 4 mg PO BID PRN Tobacco use date assessed: 08/11/23 Fall risk assessment: No Falls in past year Last assessed Fall Risk: 11/24/23 Dental Screening Dental Screen Date: 04/30/23 HPI 3mth f/u HPI Details hyperlipidemia on rx; doing well; compliant [facility] Medical History Abnormal Pap smear of cervix Conjunctivitis ST elevation myocardial infarction (STEMI) of inferior wall Atherosclerotic cardiovascular disease Ecchymosis Encounter to establish care Depression High cholesterol Past heart attack CVA (cerebral vascular accident) Surgical History Status post aorto-coronary artery bypass graft Hx of tonsillectomy Family History Mother No problems noted. Father Heart attack Social History Housing: Apartment Alcohol intake: former Patient Tobacco Use Status: Former Tobacco user e-Cigarette/Vaping Use: Never Used Second Hand Smoke Exposure: No service: No Current occupational status: disabled Cognitive needs: Yes (wheelchair) Hearing needs: No Vision needs: Yes (glasses) Female Reproductive History Menstrual Age of Menarche: 11 Questionnaire Thrive Questionnaire Date Thrive assessed: 08/11/23 JAMES-7 AMB Questionnaire JAMES-7 Date JAMES - 7 assessed: 04/30/23 Source: Developed by Drs. Binu Campbell, Nany Taylor, Cory Lewis and colleagues, with an educational damari from [facility]. Review of Systems Const Denies chills, Denies headache(s) and Denies weight loss ENT Denies headache(s) Card Denies chest pain, Denies syncope, Denies irregular heart rhythm and Denies dyspnea Resp Denies chest congestion, Denies cough and Denies dyspnea GI Denies abdominal pain, Denies change in stool character, Denies nausea and Denies vomiting Musc Denies deformity and Denies joint swelling Neuro Denies syncope and Denies headache(s) Physical exam (Primary Care) Vital Signs: Last Vital Signs Pulse 60 11/24/23 11:26 BP 110/68 11/24/23 11:26 Pulse Ox 97 11/24/23 11:26 Oxygen Delivery Method Room Air 11/24/23 11:26 Tobacco/Smoking Status: Tobacco use Status Tobacco use date assessed 08/11/23 11/24/23 11:32 Patient Tobacco Use Status Former Tobacco user 11/24/23 11:32 e-Cigarette/Vaping Use Never Used 11/24/23 11:32 Thrive Assessment: Date of Thrive Assessment Date Thrive assessed 08/11/23 11/24/23 11:32 Const General: cooperative, comfortable, no acute distress and alert Neck Neck: Yes no lymphadenopathy Thyroid: Thyroid normal Resp Effort & Inspection: normal respiratory effort Auscultation: clear to auscultation bilaterally Percussion: percussion normal Cardio Jugular venous distension: no JVD Palpation: normal PMI Rate: regular rate Rhythm: regular rhythm Heart sounds: S1 normal heart sound present and S2 normal heart sound present GI Inspection: Yes normal to inspection Palpation (GI): No hepatosplenomegaly present Skin General skin exam: no rashes or lesions noted Extrem General: Yes no clubbing, cyanosis or edema Assessment and Plan Assessment & Plan (1) High cholesterol: Code(s): E78.00 - Pure hypercholesterolemia, unspecified Plan: stable; same rx Orders: Orders Comprehensive [place]. Panel Fast 11/24/23 Z13.9 - Encounter for screening, unspecified Thyroid Stimulating Hormone 11/24/23 Z13.29 - Encounter for screening for other suspected endocrine disorder Lipid Panel 11/24/23 Z13.220 - Encounter for screening for lipoid disorders Coding Level of Care Code Est Pt Level 3 (15840) Diagnoses High cholesterol E78.00
== END 2023-11-24 11:52 | disposition home or self-care (01) ==
PROVIDERS: PCP Internal Medicine; Visit Provider Internal Medicine
DX: E78.00 Pure hypercholesterolemia, unspecified (principal); I69.351 Hemiplegia and hemiparesis following cerebral infarction affecting right dominant side; I50.22 Chronic systolic (congestive) heart failure
CPT/HCPCS: 99213

== ENCOUNTER 2024-08-22 14:25 | Emergency (ER) | payer MEDICARE, MEDICAID, SELFPAY ==
--- NOTE | ~2024-08-22 | XR_ITS ---
CLINICAL HISTORY: pain 2 view right knee Comparison: None Findings: No fractures or dislocations. Medial compartment joint space narrowing. No joint effusion. Surgical clip in the medial soft tissues. IMPRESSION: 1. No acute osseous injury. This document has been electronically signed by: Francia Man MD on 08/22/2024 17:48:42
--- NOTE | ~2024-08-22 | US_ITS ---
CLINICAL HISTORY: pain swelling Venous duplex ultrasound right lower extremity Comparison: None Findings: Limited evaluation of the posterior tibial and peroneal veins. Otherwise the visualized deep veins are fully compressible with normal Doppler color flow and spectral tracings. No popliteal cyst. Superficial edema in the right popliteal fossa. IMPRESSION: 1. Negative for right lower extremity deep vein thrombosis. This document has been electronically signed by: Francia Man MD on 08/22/2024 17:57:38
[2024-08-22 14:36] VITALS: BP 104/45; BP 136/68; PULSE 70; PULSE 71; RESP 14; TEMP 36; O2SAT 97; BMI 37.6
[2024-08-22 14:42] VITALS: BP 97/43; PULSE 76; RESP 18; O2SAT 98
--- NOTE | 2024-08-22 15:34 | PC.NURSE ---
Patient presents with c/o right LE pain and increased weakness. History of a CVA 5 years ago with right sided weakness. Patient unable to weight bear at this time secondary to the pain. Patient is primarly W/C bound and receiving home PT. alert and oriented. Respirations even and non-labored. ABdomen large soft, non-tender with positive bowels sounds. Positive pedal pulses. No increase in LE edema noted. Pending provider eval.
[2024-08-22 16:00] VITALS: BP 102/32; PULSE 68; RESP 14; TEMP 36.4; O2SAT 97
--- NOTE | 2024-08-22 16:12 | ED_ITS ---
HPI - General Adult General Chief complaint: General Medical Stated complaint: R LEG PAIN Time Seen by Provider: 08/22/24 16:11 Source: patient Limitations: no limitations History of Present Illness ED Provider: dIalia Hughes PA-C HPI narrative: 63-year-old female with a history of hypertension, hyperlipidemia, morbid obesity, prior CVA with right-sided residual weakness who is primarily wheelchair-bound at baseline, coronary artery disease status post CABG, ischemic cardiomyopathy with subsequent systolic failure with the EF of 40-45% ECHO 2023, osteopenia, and known muscle spasticity presents with atraumatic right lower extremity pain and cramping x1 week. Patient states she initially was having cramping in the left lower extremity which subsided. Pain distribution now mid right thigh down to mid calf. Pain fluctuates in intensity. Denies swelling, redness or warmth of the joint. No fevers. Related Data Home Medications ?Medication ?Instructions ?Recorded ?Confirmed leg brace (Ankle Brace) 12/09/23 Previous Rx's ?Medication ?Instructions ?Recorded miscellaneous medical supply 2 ea miscellaneous DAILY #2 ea 08/31/21 miscellaneous medical supply 1 ea miscellaneous DAILY #1 ea 10/26/21 calcium carbonate (Oyster Shell 500 mg PO DAILY 90 days #90 tabs 11/29/21 Calcium) aspirin 81 mg tablet,delayed 81 mg PO DAILY #90 tabs 03/28/23 release (Adult Low Dose Aspirin) sulfamethoxazole 800 1 tab PO BID #10 tabs 08/11/23 mg-trimethoprim 160 mg tablet (Bactrim DS) cholecalciferol (vitamin D3) 50 50 mcg PO DAILY #90 tabs 09/05/23 mcg (2,000 unit) tablet bisoprolol fumarate 5 mg tablet 2.5 mg (1/2 x 5 mg) PO DAILY #90 10/01/23 tabs miscellaneous medical supply 1 ea miscellaneous DAILY #1 ea 12/16/23 losartan 25 mg tablet 25 mg PO DAILY #90 tabs 03/08/24 atorvastatin 80 mg tablet 80 mg PO BEDTIME #90 tabs 03/10/24 pantoprazole 40 mg tablet,delayed 40 mg PO DAILY #90 tabs 03/10/24 release tizanidine 4 mg tablet 4 mg PO BID PRN muscle spasticity 03/10/24 #60 tabs sertraline 100 mg tablet 100 mg PO DAILY #90 tabs 06/29/24 Allergies Allergy/AdvReac Type Severity Reaction Status Date / Time Penicillins Allergy Mild RASH Verified 08/22/24 14:40 Review of Systems 2 Review of Systems: Yes all other systems are reviewed and are negative Constitutional: Constitutional: Denies fatigue and Denies fever(s) Cardiovascular: Cardiovascular: Denies chest pain and Denies dyspnea Respiratory: Respiratory: Denies dyspnea Musculoskeletal: Musculoskeletal: Denies arthralgias, Denies joint swelling and Reports muscle cramps Integumentary/Breasts: Skin/Breast: Denies rash Endocrine: Endocrine: Denies fatigue PMFSH Past Medical History Attestation statement: The following information was validated with the patient. Medical History Abnormal Pap smear of cervix Conjunctivitis ST elevation myocardial infarction (STEMI) of inferior wall Atherosclerotic cardiovascular disease Ecchymosis Encounter to establish care Depression High cholesterol Past heart attack CVA (cerebral vascular accident) Surgical History Status post aorto-coronary artery bypass graft Hx of tonsillectomy Family History Family History Mother No problems noted. Father Heart attack Social History Social History Housing: Apartment Alcohol intake: former Patient Tobacco Use Status: Former Tobacco user e-Cigarette/Vaping Use: Never Used Second Hand Smoke Exposure: No Advance Directives: No Advance Directives Information Provided: Yes service: No Current occupational status: disabled Cognitive needs: Yes (wheelchair) Hearing needs: No Vision needs: Yes (glasses) Physical Exam ED Vital Signs: Vital Signs - 24 hr 08/22/24 14:36 08/22/24 14:42 08/22/24 16:00 Temperature 96.8 F 97.6 F Pulse Rate 71 76 68 Respiratory Rate 14 18 14 Blood Pressure 104/45 L 97/43 L 102/32 L Pulse Oximetry 97 98 97 Oxygen Delivery Method Room Air Room Air Room Air 08/22/24 18:33 Temperature 97.9 F Pulse Rate 70 Respiratory Rate 20 Blood Pressure 126/58 L Pulse Oximetry 98 Oxygen Delivery Method Room Air BMI result Body Mass Index 37.6 Const Other: Alert Orientation/consciousness: patient oriented x3 Resp Effort & Inspection: normal respiratory effort Cardio Other: Normal peripheral perfusion trace pedal edema that has bilateral Skin Other: Warm dry no rash Neuro Other: Subtle weakness noted on the right side that has her baseline General: patient oriented x3 and CN's II-XI intact bilaterally Extrem Other: Patient able to flex and extend fully from the knee on the right Psych Other: Cooperative Course Reevaluation(s) Reevaluation #1: Time: 18:12 Date: 08/22/24 Provider: RACHEL Enriquez Patient in physician observation for case management needs. No acute events reported overnight.? No current issues or complaints. VS stable. Patient is pending placement at facility/pending PT/CM eval. Will continue to monitor. I discussed findings with the patient that everything was negative, she does not feel comfortable going home secondary to her pain. She lives home alone in senior care. 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 We will hold over for case management and physical therapy. Time: 18:12 Reevaluation #2: Patient now declines case management and physical therapy assessment she would like to go home Time: 19:08 Reevaluation #3: Time: 21:47 Date: 08/22/24 Provider: RACHEL Enriquez Patient in physician observation for case management needs. No acute events reported overnight.? No current issues or complaints. VS stable. Patient is pending placement at facility/pending PT/CM eval. Will continue to monitor. EMS came to transfer the patient, she was unable to transfer from the bed to their stretcher, after another discussion between myself her nurse and EMS, she is making the decision to stay. Time: 21:47 Medications Administered Discontinued Medications Generic Name Dose Route Start Last Admin Trade Name Freq PRN Reason Stop Dose Admin Acetaminophen 975 mg 08/22/24 16:22 08/22/24 17:02 Acetaminophen 325 Mg Tablet PO 08/22/24 16:23 975 mg ONCE ONE Administration Methocarbamol 750 mg 08/22/24 16:54 08/22/24 17:02 Methocarbamol 750 Mg Tablet PO 08/22/24 16:55 750 mg ONCE ONE Administration Medical Decision Making Medical Decision Making MDM Narrative: 63-year-old female with a history of hypertension, hyperlipidemia, morbid obesity, prior CVA with right-sided residual weakness who is primarily wheelchair-bound at baseline, coronary artery disease status post CABG, ischemic cardiomyopathy with subsequent systolic failure with the EF of 40-45% ECHO 2023, osteopenia, and known muscle spasticity presents with atraumatic right lower extremity pain and cramping x1 week. Patient states she initially was having cramping in the left lower extremity which subsided. Pain distribution now mid right thigh down to mid calf. Pain fluctuates in intensity. Denies swelling, redness or warmth of the joint. No fevers. Problem: Immobility, obesity, known muscle spasticity, osteopenia History: Per patient I have considered the following differential diagnoses: Arthritis, fracture, dislocation, DVT, cellulitis, septic effusion, electrolyte abnormality muscle cramps Plan: Patient has underlying muscle spasticity, which is the likely cause of her discomfort given there has been no trauma. She feels as if the right lower extremity is larger than the left, this is highly subjective, however given her immobility I will obtain a Doppler study to rule out DVT. Also ordering an x- ray to see if there was surrounding arthritic changes. The patient was already on a muscle relaxant, or has been in the past for her spasticity. We will give Tylenol and methocarbamol here in the ER. We will screen basic labs to see if there are any underlying electrolyte abnormalities that could be contributory to her current symptoms. I have independently reviewed the following tests: Labs: No leukocytosis, not anemic, no electrolyte abnormality noted X-ray right knee: Findings: No fractures or dislocations. Medial compartment joint space narrowing. No joint effusion. Surgical clip in the medial soft tissues. IMPRESSION: 1. No acute osseous injury. DVT study right lower extremity:Findings: Limited evaluation of the posterior tibial and peroneal veins. Otherwise the visualized deep veins are fully compressible with normal Doppler color flow and spectral tracings. No popliteal cyst. Superficial edema in the right popliteal fossa. IMPRESSION: 1. Negative for right lower extremity deep vein thrombosis. Lab Data 08/22/24 16:50 08/22/24 16:30 Labs: Lab Results 08/22/24 08/22/24 Range/Units 16:30 16:50 WBC 8.4 (4.8-10.8) X10*3/uL RBC 4.89 (4.20-5.50) X10*6/uL Hgb 13.8 (12.0-16.0) g/dl Hct 41.7 (37.0-47.0) % MCV 85.3 (80.0-98.0) fL MCH 28.2 (27.0-33.0) pg MCHC 33.1 (31.0-35.0) g/dl RDW 14.1 (11.0-16.0) % Plt Count 244 (160-400) X10*3/uL MPV 9.6 (9.4-12.3) fL Immature Gran % (Auto) 0.2 (0.0-0.4) % Neut % (Auto) 64.6 (45-73) % Lymph % (Auto) 23.9 (20-40) % [place] % (Auto) 7.4 (2-11) % Eos % (Auto) 3.2 (0-4) % Baso % (Auto) 0.7 (0-2) % Lymph # (Auto) 2.0 (1.2-4.9) X10*3/uL Carson # (Auto) 0.6 (0.1-1.2) X10*3/uL Eos # (Auto) 0.3 (0.0-0.4) X10*3/uL Baso # (Auto) 0.1 (0.0-0.2) X10*3/uL Abs Immat Gran (auto) 0.02 (0.00-0.03) X10*3/uL Absolute Neuts (auto) 5.4 (2.0-8.3) x10*3/uL Absolute Nucleated RBC 0.000 (0.0-0.012) X10*3/uL Nucleated RBC % (auto) 0.0 (0.0-0.2) /100WBC Sodium 143 (135-145) mmol/L Potassium 4.7 (3.3-5.1) mmol/L Chloride 106 (96-108) mmol/L Carbon Dioxide 26 (22-29) mmol/L Anion Gap 16 (12-20) BUN 15 (9-16) mg/dL Creatinine 0.73 (0.5-1.4) mg/dL Estim Creat Clear Calc 78.5 Estimated GFR > 60 Random Glucose 82 (60-115) mg/dL Calcium 9.5 (8.4-10.2) mg/dL Magnesium 2.2 (1.6-2.6) mg/dL Discharge Plan Discharge Clinical Impression: Muscle spasticity Patient Disposition: Still a Patient Instructions: Muscle Spasm (ED) Additional Instructions: All of your screening labs were normal. The ultrasound of the right leg was negative for a clot. The x-ray revealed mild arthritis of the knee. See home care instructions. Use your tizanidine at home for your discomfort. Follow up with your primary care provider as needed. Prescriptions: No Action miscellaneous medical supply Misc 2 ea miscellaneous DAILY Qty: 2 0RF Rx Instructions: bilateral hand/wrist splints please. thank you. calcium carbonate [Oyster Shell Calcium] 500 mg calcium (1,250 mg) tablet 500 mg PO DAILY 90 Days Qty: 90 2RF aspirin [Adult Low Dose Aspirin] 81 mg tablet,delayed release (DR/EC) 81 mg PO DAILY Qty: 90 3RF cholecalciferol (vitamin D3) 50 mcg (2,000 unit) tablet 50 mcg PO DAILY Qty: 90 3RF bisoprolol fumarate 5 mg tablet 2.5 mg PO DAILY Qty: 90 1RF (DME) Ankle Brace [facility] See Rx Instructions .ROUTE Rx Instructions: As directed [facility] miscellaneous DAILY Qty: 1 0RF Rx Instructions: AFO brace for right ankle losartan 25 mg tablet 25 mg PO DAILY Qty: 90 3RF pantoprazole 40 mg tablet,delayed release (DR/EC) 40 mg PO DAILY Qty: 90 1RF atorvastatin 80 mg tablet 80 mg PO BEDTIME Qty: 90 1RF tizanidine 4 mg tablet 4 mg PO BID PRN (Reason: muscle spasticity) Qty: 60 4RF sertraline 100 mg tablet 100 mg PO DAILY Qty: 90 0RF [facility] 1 ea miscellaneous DAILY Qty: 1 0RF Rx Instructions: right foot brace sulfamethoxazole-trimethoprim [Bactrim DS] 800-160 mg tablet 1 tab PO BID Qty: 10 0RF Print Language: [place]
[2024-08-22 16:50] LABS: Anion Gap 16 (12-20); Blood Urea Nitrogen 15 mg/dL (9-16); Calcium 9.5 mg/dL (8.4-10.2); Carbon Dioxide 26 mmol/L (22-29); Chloride 106 mmol/L (96-108); Creatinine Clr Calc Pharmacy 78.5; Estimated Glomerular Filt Rate > 60; Glucose Random 82 mg/dL (60-115); Magnesium 2.2 mg/dL (1.6-2.6); Potassium 4.7 mmol/L (3.3-5.1); Sodium 143 mmol/L (135-145)
[2024-08-22 16:56] LABS: MANUAL DIFF FLAG NO
[2024-08-22 17:00] LABS: Basophils Absolute Auto 0.1 X10*3/uL (0.0-0.2); Basophils Percent Auto 0.7 % (0-2); Eosinophils Absolute Auto 0.3 X10*3/uL (0.0-0.4); Eosinophils Percent Auto 3.2 % (0-4); Hematocrit 41.7 % (37.0-47.0); Hemoglobin 13.8 g/dl (12.0-16.0); Imm Gran Abs Auto 0.02 X10*3/uL (0.00-0.03); Imm Gran Pct Auto 0.2 % (0.0-0.4); Lymphocytes Percent Auto 23.9 % (20-40); Mean Corpuscular HGB Conc 33.1 g/dl (31.0-35.0); Mean Corpuscular Hemoglobin 28.2 pg (27.0-33.0); Mean Corpuscular Volume 85.3 fL (80.0-98.0); Mean Platelet Volume 9.6 fL (9.4-12.3); Monocytes Absolute Auto 0.6 X10*3/uL (0.1-1.2); Monocytes Percent Auto 7.4 % (2-11); Neutrophils Absolute Auto 5.4 x10*3/uL (2.0-8.3); Neutrophils Percent Auto 64.6 % (45-73); Platelet Count 244 X10*3/uL (160-400); Red Blood Count 4.89 X10*6/uL (4.20-5.50); Red Cell Distribution Width 14.1 % (11.0-16.0); White Blood Count 8.4 X10*3/uL (4.8-10.8)
[2024-08-22] MEDS: Acetaminophen 325 MG TABLET 975 MG PO (17:02)
[2024-08-22] MEDS: methocarbamoL 750 MG TABLET PO (17:02)
[2024-08-22 18:33] VITALS: BP 126/58; PULSE 70; RESP 20; TEMP 36.6; O2SAT 98
--- NOTE | 2024-08-22 21:37 | PC.NURSE ---
EMS arrived to transport back to her assisted living faciity. EMS was concerned about the patient inability to stand and pivot - planning to sleep in her W/C. They were able to convince patient to remain in the ED for re-evaluation in the morning as this would be the safest plan. Provider notified.
--- NOTE | 2024-08-22 23:23 | PC.NURSE ---
Care assumed of pt at this time. Resting quietly with eyes closed. respirations even and unlabored.
--- NOTE | 2024-08-23 03:06 | PC.NURSE ---
Resumed care of pt, she is currently resting comfortably, awaiting safe dispo plan at this time. Call fisher within reach, all safety measures in place. Purewic remains in place at this time.
[2024-08-23 04:42] VITALS: BP 128/74; PULSE 79; RESP 14; TEMP 36.7; O2SAT 99
--- NOTE | 2024-08-23 09:28 | PHA.MEDREC ---
Pharmacy Consult ? Medication Reconciliation Pharmacy has completed the medication reconciliation. Reviewed med rec done by nursing.
[2024-08-23 09:59] LABS: Influenza A PCR NEGATIVE (Negative); Influenza B PCR NEGATIVE (Negative); Resp Syncy Virus RNA Qual PCR NEGATIVE (Negative); SARS COV2 PCR INHOUSE NEGATIVE (Negative)
[2024-08-23 10:31] VITALS: BP 119/55
[2024-08-23] MEDS: TiZANidine HCL 4 MG TABLET PO (10:31)
[2024-08-23] MEDS: Aspirin Enteric Coated 81 MG TABLET.DR PO (10:31)
[2024-08-23] MEDS: Losartan Potassium 25 MG TABLET PO (10:31)
[2024-08-23] MEDS: Cholecalciferol (Vitamin D3) 25 MCG TABLET 50 MCG PO (10:32)
[2024-08-23] MEDS: Sertraline HCL 100 MG TABLET PO (10:32)
[2024-08-23] MEDS: Bisoprolol Fumarate 5 MG TABLET 2.5 MG PO (12:54)
--- NOTE | 2024-08-23 13:05 | PC.NURSE ---
Assumed care of this patient upon transfer to Overflow unit. Patient resting quietly in bed, VSS. Pt. currently waiting for acute rehab bed offers, CM following.
[2024-08-23 13:24] VITALS: BP 106/56; PULSE 68; RESP 18; TEMP 36.6; O2SAT 98
--- NOTE | 2024-08-23 15:00 | MHC.CM.ED ---
Received case management consult overnight. Patient came to the ER due to right leg pain. Work up essentially negative. Physical therapy eval completed. Acute rehab is recommended. Sent referral to all 3 acute rehab facilities. No acute rehab beds offered. Met with patient in regards to discharge planning. 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 Patient was d/c'd to [facility] in June of 2019 and then transferred to [facility] until 09/2021 when patient was d/c' to her [facility] apartment. 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 PCP verified. Patient reports having a HCP. Attempting to obtain a copy of [facility]. SNF referral made via [facility]port locally. [facility], [facility], [facility], [facility] and [facility] are able to offer a bed. Patient accepts a bed at [facility]. Facility aware and will complete [facility] PASRR Level 1. MDS will be completed, faxed to [facility] and [facility]. Will need BLS transport when [facility] Level obtained from [facility]. Continue to monitor for d/c needs.
[2024-08-23 18:43] VITALS: BP 135/64; PULSE 67; RESP 16; TEMP 36.9; O2SAT 97
[2024-08-23] MEDS: Atorvastatin Calcium 80 MG TABLET PO (21:26)
--- NOTE | 2024-08-23 21:52 | PC.NURSE ---
Assumed care for pt at 1900. Pt a&o x3 speaking in full clear sentences, awake in the bed watching tv. Pt denies any pain at this time. Pt given crackers per request and took meds whole with water. Pt needs met at this time. Pts call fisher within reach. Plan of care ongoing.
[2024-08-23 22:00] VITALS: BP 113/40; PULSE 72; RESP 19; TEMP 36.9; O2SAT 95
--- NOTE | 2024-08-24 03:22 | PC.NURSE ---
late entry- this rn assumed care of pt @ 2300 pt calm and cooperative repositioned in bed connected to periwick lights dimmed to promote rest
[2024-08-24 06:28] VITALS: BP 114/59; PULSE 75; RESP 16; TEMP 36.7; O2SAT 97
[2024-08-24] MEDS: Omeprazole 20 MG CAPSULE.DR PO (06:30)
[2024-08-24 08:42] VITALS: BP 117/62; PULSE 67; RESP 18; TEMP 36.5; O2SAT 94
[2024-08-24] MEDS: Aspirin Enteric Coated 81 MG TABLET.DR PO (08:55)
[2024-08-24 08:56] VITALS: BP 117/62
[2024-08-24] MEDS: Losartan Potassium 25 MG TABLET PO (08:56)
[2024-08-24] MEDS: Bisoprolol Fumarate 5 MG TABLET 2.5 MG PO (08:56)
[2024-08-24] MEDS: Cholecalciferol (Vitamin D3) 25 MCG TABLET 50 MCG PO (08:56)
[2024-08-24] MEDS: Sertraline HCL 100 MG TABLET PO (08:56)
--- NOTE | 2024-08-24 08:59 | PC.NURSE ---
patient brought to overflow bed 2, pt a&ox3, vss, rr equal/non labored- lungs diminished/clear, pure wick intact patient/draining, presently denying pain/discomfort, rt abd fold red/barrier cream applied. fall precautions intact, call fisher within reach, plan of care ongoing
--- NOTE | 2024-08-24 12:04 | MHC.CM.ED ---
Patient remains in ER overflow. [facility] approval obtained from [facility]. Patient leave at 330pm. [place] MANZO booked. [facility] with chart. Patient, July KHAN and Kanchan RAMOS aware. Continue to monitor for d/c needs.
[2024-08-24 14:00] VITALS: BP 100/49; PULSE 68; RESP 16; TEMP 37; O2SAT 96
--- NOTE | 2024-08-24 14:57 | PC.NURSE ---
report given to Inessa at [facility]
[2024-08-24 15:55] VITALS: BP 100/49; PULSE 68; RESP 16; TEMP 37; O2SAT 96
== END 2024-08-24 15:56 ==
PROVIDERS: Physician Assistant Medical; Emergency Provider Emergency Medicine; PCP Family Medicine
DX: M62.838 Other muscle spasm (principal); M79.606 Pain in leg, unspecified; I25.10 Atherosclerotic heart disease of native coronary artery without angina pectoris; M79.89 Other specified soft tissue disorders; I69.951 Hemiplegia and hemiparesis following unspecified cerebrovascular disease affecting right dominant side; I10 Essential (primary) hypertension; Z03.818 Encounter for observation for suspected exposure to other biological agents ruled out; Z99.3 Dependence on wheelchair
CPT/HCPCS: 0241U; 36415; 73560; 80048; 83735; 85025; 93971; 97162; 99285

== ENCOUNTER → 2024-08-22 16:21 | Outpatient (BNV) | payer MEDICARE, MEDICAID, SELFPAY | PROVIDERS: PCP Family Medicine; Visit Provider Radiology Diagnostic Radiology | DX: M79.661 Pain in right lower leg (principal); R22.41 Localized swelling, mass and lump, right lower limb; M25.561 Pain in right knee | CPT/HCPCS: 73560; 93971 ==

== ENCOUNTER 2025-01-25 11:01 | Emergency (ER) | payer MEDICARE, MEDICAID, SELFPAY ==
--- NOTE | ~2025-01-25 | XR_ITS ---
EXAMINATION: XR FEMUR, RIGHT CLINICAL INFORMATION: pain fracture? COMPARISON: None available. TECHNIQUE: AP and lateral views of the right femur were obtained. FINDINGS: No fracture, dislocation, or suspicious bone lesion. The femur is intact. Mild degenerative changes of the right hip joint. Mild to moderate degenerative changes of the right knee joint. No knee joint effusion. No soft tissue abnormalities. XR/XR femur RT 2V IMPRESSION: No acute bony or soft tissue abnormalities. Electronically signed by: Dinh Winkler MD 01/25/2025 01:12 PM EDT
--- NOTE | ~2025-01-25 | US_ITS ---
EXAMINATION: US TRIPLEX LOWER EXTREMITY, RIGHT CLINICAL INFORMATION: Right thigh pain, rule out DVT. COMPARISON: None available. TECHNIQUE: Color-flow triplex imaging with spectral analysis and compression Doppler were performed on the right lower extremity. FINDINGS: Respiratory variation, normal compression and augmented flow are noted throughout the right lower extremity. The visualized common femoral vein, superficial femoral vein, profunda femoral vein, popliteal vein and midcalf peroneal and posterior tibial venous segments show no evidence of deep venous thrombosis. There is no Fox's cyst. There are reactive appearing lymph nodes in the right groin region. US/US venous duplex LE RT IMPRESSION: No evidence of deep venous thrombosis involving the right lower extremity. Electronically signed by: Dinh Winkler MD 01/25/2025 01:07 PM EDT
[2025-01-25 11:13] VITALS: BP 122/68; BP 138/85; PULSE 85; RESP 18; TEMP 36.9; O2SAT 94; O2SAT 96; BMI 36.4
--- NOTE | 2025-01-25 11:42 | PC.NURSE ---
Patient called this RN to bedside, stated I have to go to the bathroom, but I'm afraid that I've already soiled myself . Assisted out of bed to wheelchair, assisted to bathroom. Changed into hospital attire. Cleaned up/hygiene care provided Awaiting ED provider evaluation.
--- NOTE | 2025-01-25 12:02 | ED.GENADULT ---
HPI - General Adult General Chief complaint: Extremity Injury, Lower Stated complaint: rt thigh stiffness hamstring ?blood clot Time Seen by Provider: 01/25/25 11:11 Source: patient Mode of arrival: ambulatory Limitations: no limitations History of Present Illness ED Provider: Morgan Smyth HPI narrative: 64-year-old female wheelchair-bound with past medical history of hypertension, depression, STEMI, high cholesterol, chronic CHF presents to ED right posterior thigh pain possible lump. Patient was sent by primary care provider to rule out DVT. Patient denies any recent trauma, fever, chills, redness, chest pain or shortness of breath. Related Data Home Medications ?Medication ?Instructions ?Recorded ?Confirmed leg brace (Ankle Brace) 12/09/23 Previous Rx's ?Medication ?Instructions ?Recorded aspirin 81 mg tablet,delayed 81 mg PO DAILY #90 tabs 03/28/23 release (Adult Low Dose Aspirin) cholecalciferol (vitamin D3) 50 50 mcg PO DAILY #90 tabs 09/05/23 mcg (2,000 unit) tablet bisoprolol fumarate 5 mg tablet 2.5 mg (1/2 x 5 mg) PO DAILY #90 10/01/23 tabs losartan 25 mg tablet 25 mg PO DAILY #90 tabs 03/08/24 atorvastatin 80 mg tablet 80 mg PO BEDTIME #90 tabs 03/10/24 pantoprazole 40 mg tablet,delayed 40 mg PO DAILY #90 tabs 03/10/24 release tizanidine 4 mg tablet 4 mg PO BID PRN muscle spasticity 03/10/24 #60 tabs sertraline 100 mg tablet 100 mg PO DAILY #90 tabs 06/29/24 Allergies Allergy/AdvReac Type Severity Reaction Status Date / Time Penicillins Allergy Mild RASH Verified 01/25/25 11:20 Review of Systems Review of Systems: Right posterior thigh slight pain slight lump Yes all other systems are reviewed and are negative [facility] Past Medical History Medical History Abnormal Pap smear of cervix Conjunctivitis ST elevation myocardial infarction (STEMI) of inferior wall Atherosclerotic cardiovascular disease Ecchymosis Encounter to establish care Depression High cholesterol Past heart attack CVA (cerebral vascular accident) Surgical History Status post aorto-coronary artery bypass graft Hx of tonsillectomy Family History Family History Mother No problems noted. Father Heart attack Social History Social History Housing: Apartment Alcohol intake: former Patient Tobacco Use Status: Former Tobacco user Smoked in Last 30 Days: No e-Cigarette/Vaping Use: Never Used Second Hand Smoke Exposure: No Use of substances other than those prescribed or required for medical reasons: No Advance Directives: No Advance Directives Information Provided: Yes Do you have a plan to hurt others: No Plan service: No Current occupational status: disabled Cognitive needs: Yes (wheelchair) Hearing needs: No Vision needs: Yes (glasses) Physical Exam ED Vital Signs: Vital Signs - 24 hr 01/25/25 11:13 01/25/25 13:23 01/25/25 16:48 Temperature 98.4 F 98 F 98.6 F Pulse Rate 85 78 65 Respiratory Rate 18 18 18 Blood Pressure 138/85 132/84 123/58 L Pulse Oximetry 94 96 98 Oxygen Delivery Method Room Air Room Air Room Air 01/25/25 18:31 Temperature 98.6 F Pulse Rate 65 Respiratory Rate 18 Blood Pressure 123/58 L Pulse Oximetry 98 Oxygen Delivery Method Room Air BMI result Body Mass Index 36.4 Const General: cooperative, healthy appearing, comfortable, no acute distress, well developed, alert, awake and Physically active [facility] Head: Yes normal to inspection, Yes No palpable skull fracture present, Yes normocephalic and Yes atraumatic Eyes General: appearance normal, both eyes and all related structures Neck Neck: Yes normal visual inspection, Yes full ROM, Yes no lymphadenopathy, Yes no meningeal signs, Yes trachea midline, Yes supple, No anterior neck swelling and No tender Chest Chest palpation & inspection: normal inspection of the chest and normal palpation of entire chest wall Resp Effort & Inspection: normal respiratory effort and able to speak in complete sentences Auscultation: clear to auscultation bilaterally Cardio Jugular venous distension: no JVD Heart sounds: S1 normal heart sound present and S2 normal heart sound present GI Inspection: Yes normal to inspection Palpation (GI): Soft to palpation, not firm, nontender, no guarding and not rigid General: Yes no CVA tenderness Back/Spine/Pelvis Back: no CVA tenderness and No back tenderness Skin General skin exam: no rashes or lesions noted, elasticity normal and turgor normal Neuro General: tone normal, moves all extremities, Normal light touch and pain sensation, no meningeal signs, no focal motor deficits, CN's II-XI intact bilaterally and normal sensation to monofilament Extrem General: Yes normal to inspection, Yes full ROM and Yes capillary refill normal Knee images:  1. Flank tenderness on palpation. Negative for erythema, ecchymosis, deformity, fluctuance, pus discharge, foul odor, or open wound. Rest of extremity normal. Motor/neuro/vascular exam of the Psych Appearance: grossly normal, well kempt and not disheveled Medical Decision Making Medical Decision Making MDM Narrative: 74-year-old female history of CVA high cholesterol, wheelchair-bound presents to the ED for right posterior thigh pain/discomfort/lump. On exam negative for of cellulitis, abscess, necrotizing fasciitis, hematoma, fracture, dislocation, or compartment syndrome. Ultrasound came back negative for DVT or Fox's cyst. Xray negative for fracture or signs of osteomyelitis. Patient explained worrisome signs informed return to the ED immediately. Negative for signs of life threatening etiology. Differential Diagnosis Differential Diagnoses: The differential diagnosis associated with the presentation includes (DVT, cellulitis, fracture,) Admission/Observation Consideration of admission/observation: Escalation of care including admission/observation considered Lab Data [facility] Lab Attestation statement: I reviewed the patient's lab results. 01/25/25 13:02 01/25/25 13:02 Labs: Lab Results 01/25/25 Range/Units 13:02 WBC 8.3 (4.8-10.8) X10*3/uL RBC 5.40 (4.20-5.50) X10*6/uL Hgb 15.0 (12.0-16.0) g/dl Hct 45.8 (37.0-47.0) % MCV 84.8 (80.0-98.0) fL MCH 27.8 (27.0-33.0) pg MCHC 32.8 (31.0-35.0) g/dl RDW 14.0 (11.0-16.0) % Plt Count 231 (160-400) X10*3/uL MPV 9.7 (9.4-12.3) fL Immature Gran % (Auto) 0.2 (0.0-0.4) % Neut % (Auto) 72.6 (45-73) % Lymph % (Auto) 18.7 L (20-40) % [place] % (Auto) 6.8 (2-11) % Eos % (Auto) 1.1 (0-4) % Baso % (Auto) 0.6 (0-2) % Lymph # (Auto) 1.6 (1.2-4.9) X10*3/uL [place] # (Auto) 0.6 (0.1-1.2) X10*3/uL Eos # (Auto) 0.1 (0.0-0.4) X10*3/uL Baso # (Auto) 0.1 (0.0-0.2) X10*3/uL Abs Immat Gran (auto) 0.02 (0.00-0.03) X10*3/uL Absolute Neuts (auto) 6.0 (2.0-8.3) x10*3/uL Absolute Nucleated RBC 0.000 (0.0-0.012) X10*3/uL Nucleated RBC % (auto) 0.0 (0.0-0.2) /100WBC PT 11.4 (10.9-12.4) SEC INR 1.0 (0.9-1.1) APTT 35.4 H (26.7-34.1) SEC Sodium 143 (135-145) mmol/L Potassium 4.1 (3.3-5.1) mmol/L Chloride 108 (96-108) mmol/L Carbon Dioxide 28 (22-29) mmol/L Anion Gap 11 L (12-20) BUN 15 (9-16) mg/dL Creatinine 0.72 (0.5-1.4) mg/dL Estim Creat Clear Calc 80.2 Estimated GFR > 60 Random Glucose 97 (60-115) mg/dL Calcium 9.5 (8.4-10.2) mg/dL Total Bilirubin 1.8 H (0.0-1.0) mg/dL AST 24 (5-31) U/L ALT 16 (0-31) U/L Alkaline Phosphatase 127 H (39-117) U/L Total Protein 7.2 (6.5-8.0) g/dL Albumin 4.5 (3.5-5.0) g/dL Independent Interpretation I performed an independent interpretation of an: Ultrasound Radiology Impression Discussion of test interpretation with radiology: I have reviewed the radiologist's reading. Independent Historian Clinical information obtained from an independent historian. History obtained from or confirmed by: Other (patient) Prescription Management I considered prescription management with: Pain Medication Discharge Plan Discharge Clinical Impression: Pain in right thigh Patient Disposition: Home, Self-Care Instructions: Leg Pain (ED) Additional Instructions: Recommend follow-up with primary care provider. Ultrasound x-ray labs came back reassuring. Negative for fracture, dislocation, or DVT. Return to the ED immediately for any redness, pain, swelling, bluish black discoloration, fever, chills, chest pain, shortness of breath, or any other concerning symptoms. Due to you taking aspirin recommend only taking Tylenol for pain. Prescriptions: No Action aspirin [Adult Low Dose Aspirin] 81 mg tablet,delayed release (DR/EC) 81 mg PO DAILY Qty: 90 3RF cholecalciferol (vitamin D3) 50 mcg (2,000 unit) tablet 50 mcg PO DAILY Qty: 90 3RF bisoprolol fumarate 5 mg tablet 2.5 mg PO DAILY Qty: 90 1RF (DME) Ankle Brace Misc See Rx Instructions .ROUTE Rx Instructions: As directed losartan 25 mg tablet 25 mg PO DAILY Qty: 90 3RF pantoprazole 40 mg tablet,delayed release (DR/EC) 40 mg PO DAILY Qty: 90 1RF atorvastatin 80 mg tablet 80 mg PO BEDTIME Qty: 90 1RF tizanidine 4 mg tablet 4 mg PO BID PRN (Reason: muscle spasticity) Qty: 60 4RF sertraline 100 mg tablet 100 mg PO DAILY Qty: 90 0RF Referrals: Ericka Purdy MD [Primary Care Provider, Internal Medicine] - 2 days Referral Note: Thigh pain Clinical Impression: Pain in right thigh Interventions: ED Discharge Assessment Last Done: 01/25/25 18:31 Discharge Date/Time: 01/25/25 18:31 Print Language: Uruguayan
--- NOTE | 2025-01-25 12:21 | MHC.EDTECH ---
pt was in restroom and is in ultrasound, unable to do labs yet
[2025-01-25 13:08] LABS: MANUAL DIFF FLAG NO
[2025-01-25 13:10] LABS: Hematocrit 45.8 % (37.0-47.0); Hemoglobin 15.0 g/dl (12.0-16.0); Imm Gran Abs Auto 0.02 X10*3/uL (0.00-0.03); Imm Gran Pct Auto 0.2 % (0.0-0.4); Lymphocytes Absolute Auto 1.6 X10*3/uL (1.2-4.9); Mean Corpuscular HGB Conc 32.8 g/dl (31.0-35.0); Mean Corpuscular Hemoglobin 27.8 pg (27.0-33.0); Mean Corpuscular Volume 84.8 fL (80.0-98.0); NRBC Abs Auto 0.000 X10*3/uL (0.0-0.012); NRBC Pct Auto 0.0 /100WBC (0.0-0.2); Platelet Count 231 X10*3/uL (160-400); Red Blood Count 5.40 X10*6/uL (4.20-5.50); White Blood Count 8.3 X10*3/uL (4.8-10.8)
[2025-01-25 13:17] LABS: INTERNATIONAL NORM RATIO 1.0 (0.9-1.1); Prothrombin Time 11.4 SEC (10.9-12.4)
[2025-01-25 13:20] LABS: Partial Thromboplastin Time 35.4 SEC (26.7-34.1)
[2025-01-25 13:23] VITALS: BP 132/84; PULSE 78; RESP 18; TEMP 36.6; O2SAT 96
[2025-01-25 13:25] LABS: Alanine Aminotransferase 16 U/L (0-31); Albumin Level 4.5 g/dL (3.5-5.0); Alkaline Phosphatase 127 U/L (39-117); Anion Gap 11 (12-20); Aspartate Amino Transferase 24 U/L (5-31); Blood Urea Nitrogen 15 mg/dL (9-16); Calcium 9.5 mg/dL (8.4-10.2); Carbon Dioxide 28 mmol/L (22-29); Chloride 108 mmol/L (96-108); Creatinine Clr Calc Pharmacy 80.2; Estimated Glomerular Filt Rate > 60; Potassium 4.1 mmol/L (3.3-5.1); Sodium 143 mmol/L (135-145); Total Protein 7.2 g/dL (6.5-8.0)
--- OUTSIDE RECORDS SUMMARY | 2025-01-25 15:03 | XMS_ITS | Data Portability ---
Author Organization [facility], Main Office Address [address], [address] [place] [address] Care Team Providers Care Physical Therapist Name Role Phone DAY () OTHER Assessment No assessment recorded. Plan of Treatment Reminders Order Date Submit Date Provider Last Modified By Organization Details Last Modified Time Details Appointments None record ed. Lab None record ed. Referral None record ed. Procedures None record ed. Surgeries None record ed. Imaging None record ed. Medication Orders None record ed. Patient TargetsNo targets recorded. Patient InstructionsNo instructions recorded. Reason for Referral None Reported. Problems Name Problem SNOMED Code Status Onset Date Resolution Date Notes Provider Name and Address Organization Details Recorded Time Cerebrovasc ular accident [id number] Active 2019 ELENA SALCIDO [address] , [address], [place], [address], [facility] [employer] [facility] 0 16:20:12 Coronary arterioscle rosis 81375143 Active 2019 ELENA SALCIDO [address], [address], [place], [address], [facility] [employer] [facility] 0 16:20:25 Chronic systolic heart failure 195053255 Active 2019 ELENA SALCIDO [address], [address], [place], [address], [facility] [employer] 0 16:20:43 Dehiscence of surgical wound 23670115 Active 2019 ELENA SALCIDO [address], [address], [place], [address], [facility] [employer] [facility] 0 16:21:42 Anemia 781934404 Active 2019 ELENA SALCIDO [address], [address], [place], [address], [facility] 0 16:39:13 Dysphagia 60148771 Active 2019 ELENA SALCIDO [address], [address], [place], [address], [facility] 0 16:40:21 Gastroesoph ageal reflux disease without esophagitis 128748596 Active 2019 ELENA SALCIDO [address] , [address], [place], [address], [facility] 0 16:44:07 Overactive urinary bladder 418040983 Active 2019 ELENA SALCIDO [address] , [address], [place], [address], [facility] 0 16:46:38 Mixed anxiety and depressive disorder 261676572 Active 2019 ELENA SALCIDO [address] , [address], [place], [address], [facility] 0 13:00:44 Muscle spasticity present 7040194415471 08 Active 2019 JACKLYN XAVIER NP [address] , [address], [place], [address], [facility] 0 13:44:38 Problem Notes None recorded. Medical Equipment None Reported. Allergies Allergen ID Allergen Name Allergen Category Reaction Reaction Severity Criticality Documentation Date Start Date Code Code System Note Provider Name and Address Organization Details Recorded Time banana extract food,medi cation Not available Not available Not available 10/15/2019 54176 9 RxNorm ELENA SALCIDO [address] , [address], [place], [address], [facility] 0 16:18:06 26897 egg extract food,medi cation Not available Not available Not available 10/15/2019 88012 15 RxNorm ELENA SALCIDO [address], [place], [address], [facility] 0 16:18:14 37580 onion extract food,medi cation Not available Not available Not available 10/15/2019 50477 69 RxNorm KAILEY MOSLEY, MUSHROOM CUTTER [address] , [address], [place], [address], [facility] 0 16:18:21 08370 Product containin g penicilli n (product) medicatio n Not available Not available Not available 10/15/2019 29862 8001 SNOMED KAILEY MOSLEY, MUSHROOM CUTTER [address], [address], [place], [address], [facility] 0 16:18:34 Vitals Date Recorded Body temperature Heart rate Oxygen saturation Oxygen saturation in Arterial blood by Pulse oximetry Systolic And Diastolic Provider Name and Address Organization Details Last Updated DateTime 2 97.5 [degF] 82 /min 95 % 95 % 133/78 mm[Hg] Cynthia Barone MD [address] [facility], [address], [place], [address], [facility] 2 08:12:47 Date Recorded Systolic And Diastolic Provider Name and Address Organization Details Last Updated DateTime 07/11/2021 111/76 mm[Hg] July Jung [employer] [facility] 07/11/2021 15:16:50 Date Recorded Body weight Body mass index (BMI) Body height Heart rate Respiratory rate Body temperature Oxygen saturation Oxygen saturation in Arterial blood by Pulse oximetry Systolic And Diastolic Provider Name and Address Organization Details Last Updated DateTime 2 26363.3 8 g 32.6 kg/m2 167.64 cm 68 /min 18 /min 98.2 [degF] 97 % 97 % 114/74 mm[Hg] JACKLYN XAVIER NP [address] [facility], [address], [place], [address], [facility] 2 12:55:27 Date Recorded Body height Heart rate Respiratory rate Body temperature Oxygen saturation Oxygen saturation in Arterial blood by Pulse oximetry Systolic And Diastolic Provider Name and Address Organization Details Last Updated DateTime 2 167.64 cm 70 /min 18 /min 97.6 [degF] 97 % 97 % 114/74 mm[Hg] JACKLYN XAVIER NP [address] , [address], [place], [address], [facility] 2 09:02:47 Date Recorded Heart rate Respiratory rate Body temperature Oxygen saturation Oxygen saturation in Arterial blood by Pulse oximetry Systolic And Diastolic Provider Name and Address Organization Details Last Updated DateTime 1 61 /min 18 /min 97.5 [degF] 97 % 97 % 133/97 mm[Hg] JACKLYN XAVIER NP [address], [address], [place], [address], [facility] [employer] [facility] 1 17:01:57 Social History Question Answer Notes LastModified by [employer] Details LastModified Time Tobacco Smoking Status Never Smoker Not Available [facility] 02/22/2020 03:13:20 Do You Have An Advance Directive? Yes FULL CODE-undecide d About Dialysis Or Nutrition-use Hydration Short Term Information not available 08/01/2020 How Much Tobacco Do You Chew? None [id number] Information not available 02/22/2020 What Is Your Code Status? Full Code Information not available 11/23/2020 Legal Guardian? No Information not available 11/23/2020 Do You Have A Medical Power Of Consumer Analyst? Yes HCP On File Information not available 11/23/2020 What Was The Date Of Your Most Recent Tobacco Screening? 10/15/2019 [id number] Information not available 02/22/2020 How Much Tobacco Do You Smoke? No [id number] Information not available 02/22/2020 Sex: Unknown Functional Status Question Answer Note LastModified by [employer] Details LastModified Time What is your level of alcohol consumption? None [id number] Information not available 02/22/2020 Do you or have you ever used smokeless tobacco? Never used smokeless tobacco [id number] Information not available 02/22/2020 Do you or have you ever used e-cigarettes or vape? Never used electronic cigarettes [id number] Information not available 02/22/2020 Mental Status Question Answer Note LastModified by Organization D etails LastModified Time Do you feel stressed (tense, restless, nervous, or anxious, or unable to sleep at night)? [id number] [email or web address] Information not available 11/23/2020 Family History Nothing Reported Notes:n/c Medical History No medical history recorded. Gynecological HistoryNo gynecological history recorded. Obstetrics History GPAL:G 0 P 0 0 0 0 Past Encounters Encounter ID Performer Location Encounter Start Date Encounter Closed Date Diagnosis/Indication Diagnosis SNOMED-CT Code Diagnosis ICD10 Code Diagnosis IMO Codes Diagnosis Note [id number] ELENA SALCIDO [address] [address] 10/15/2019 16:17:25 10/28/2019 12:14:14 Cerebrovascular accident 101796441 I63.89 left thalamus, occipital lobe and temporal lobe s/p CABG 08/19/19 complicati on PT/OT/ST eval and treat atorvastat in 80 mg qd bisoprolol 2.5 mg qd lovenox 40 mg qd plavix 75 mg qd tizanidine 2 mg tid monitor for safety appears to be a guardian in place but no paperwork on it Coronary arteriosclerosis 08027466 I25.10 see above Dehiscence of surgical wound 64836516 T81.31XS calcium alginate with dry dsg qod followed by wound clinic at [facility] tylenol 500 mg q 8 hrs prn vitamin C 500 mg qd monitor for infection Chronic sy stolic heart failure 592385900 I50.22 low Na diet bisoprolol 5 mg qd daily weight monitor fluid balance Anemia 181916844 D50.8 monitor labs Dysphagia 86349516 R13.1 9 had g-tube that was removed monitor ST eval and treat monitor for safety Gastroesop hageal reflux disease without esophagitis 829004282 K21.9 protonix 40 mg qd monitor for symptoms Overactive urinary bladder 843300689 N32.81 myrbetriq er 25 mg qd monitor for symptoms [id number] Cynthia Barone MD [facility] [address] [place] [address] 10/20/2019 12:25:21 10/28/2019 12:38:07 Cerebrovascular accident 408714826 I63.89 Lovenox 40 mg dailytizan idine 2 mg tidatorvas tatin 80 mg dailyPT/OT Chronic sy stolic heart failure 628469430 I50.22 bisoprolol 2.5 mg dailywill monitor Coronary arteriosclerosis 67806725 I25.10 clopidogre l 75 mg dailybisop rolol 2.5 mg daily atorvastat in 80 mg dailyPT/OT Dehiscence of surgical wound 41602141 T81.30XD improvingc ontinue wound carefu wound care team Gastroesop hageal reflux disease without esophagitis 405440137 K21.9 pantoprazo le 40 mg dailywill monitor Overactive urinary bladder 801176037 N32.81 Myrbetriq 25 mg ER dailywill monitor [id number] KAILEY MOSLEY [address] [place] [address] 10/26/2019 10:38:57 10/28/2019 13:39:29 Cerebrovascular accident [id number] I63.89 PT/OT/ST atorvastat in 80 mg qd bisoprolol 2.5 mg qd lovenox 40 mg qd plavix 75 mg qd tizanidine 2 mg tid monitor for safety doing well with therapy at this time Dehiscence of surgical wound 98337282 T81.31XS calcium alginate with dry dsg qd followed by wound clinic at [facility]-our wound md saw yesterday and debrided it tylenol 500 mg q 8 hrs prn vitamin C 500 mg qd monitor for infection [id number] Luisana Black, [address] [place] [address] 11/04/2019 15:28:32 11/08/2019 13:16:50 Cerebrovascular accident 337945261 I63.89 Lovenox 40 mg qdtizanidi ne 2 mg tidatorvas tatin 80 mg qdcontinue PT/OT Chronic sy stolic heart failure 691775879 I50.22 bisoprolol 2.5 mg qdmonitor fluid statuscomp ensated Coronary arteriosclerosis 49196053 I25.10 clopidogre l 75 mg qdbisoprol ol 2.5 mg qd atorvastat in 80 mg qdmonitor for chest pain, sob Dehiscence of surgical wound 35338297 T81.30XD improvingc ontinue wound caref/u wound DR Gastroesop hageal reflux disease without esophagitis 871424052 K21.9 pantoprazo le 40 mg qdmonitor for sx control Overactive urinary bladder 146059859 N32.81 Myrbetriq 25 mg ER dailymonit or for retention [id number] KAILEYELENA LUU [place] [address] [address] [place] [address] 11/09/2019 12:22:51 11/15/2019 16:26:40 Cerebrovascular accident 493189959 I63.89 atorvastat in 80 mg qd bisoprolol 2.5 mg qd lovenox 40 mg qd plavix 75 mg qd tizanidine 2 mg tid monitor for safety doing well with therapy per therapy Mixed anxi ety and depressive disorder 711778431 F41.8 will start zoloft 25 mg qd x 6 days then increase to 50 mg qd discussed risk vs benefit of zoloft with pt and guardian monitor for decreased anxiety and tearfulnes s [id number] ELENA SALCIDO [place] [address] [place] [address] 11/12/2019 12:21:08 11/16/2019 11:25:53 Cerebrovascular accident 939298204 I63.89 atorvastat in 80 mg qd bisoprolol 2.5 mg qd lovenox 40 mg qd plavix 75 mg qd tizanidine 2 mg tid monitor for safety Dehiscence of surgical wound 81066278 T81.31XS calcium alginate with dry dsg qd followed by wound tylenol 500 mg q 8 hrs prn vitamin C 500 mg qd monitor for infection Anemia 228689056 D50.8 monitor labs Chronic sy stolic heart failure 063892201 I50.22 low Na diet bisoprolol 2.5 mg qd daily weight monitor fluid balance Coronary arteriosclerosis 14674244 I25.10 see above Dysphagia 13116993 R13.[address] eval and treat monitor for safety Gastroesop hageal reflux disease without esophagitis 383730213 K21.9 protonix 40 mg qd monitor for symptoms Mixed anxi ety and depressive disorder 460558036 F41.8 zoloft 25 mg qd x 6 days then increase to 50 mg qd monitor for decreased anxiety and tearfulnes s Overactive urinary bladder 896827441 N32.81 myrbetriq er 25 mg qd monitor for symptoms [id number] JACKLYN XAVIER NP [place] [address] [place] [address] 11/19/2019 12:27:18 11/22/2019 16:31:07 Dehiscence of surgical wound 97155018 T81.30XD followed by wound tylenol 500 mg q 8 hrs prn vitamin C 500 mg qd monitor for infection Gastroesop hageal reflux disease without esophagitis 620304082 K21.9 protonix 40 mg qd monitor for symptoms Mixed anxi ety and depressive disorder 659051949 F41.8 Zoloft 50 mg daily monitor and chart any changes in mood or behaviors [id number] JACKLYN XAVIER NP [place] [address] [place] [address] 11/24/2019 13:41:32 2019 11:57:58 Cerebrovascular accident 022498569 I63.9 atorvastat in 80 mg qd bisoprolol 2.5 mg qd lovenox 40 mg qd plavix 75 mg qd tizanidine 2 mg tid monitor for safety Muscle spa sticity present 8867934119 79087 M62.838 Tizanadine 2 mg tid-to be increased to 4 mg am-2 mg at 1400 and 2000 continue with PT [id number] ELENA Grissom [place] [address] [address] [place] [address] 12/03/2019 10:53:56 12/06/2019 16:25:47 Cerebrovascular accident 131610236 I63.89 Lovenox 40 mg qdtizanidi ne 4 mg q am and 2 mg bidatorvas tatin 80 mg qdcontinue PT/OTcalle d insurance company and they don't have a denial in the system so will need to wait till that is in place to have a dr to call Chronic sy stolic heart failure 675954690 I50.22 bisoprolol 2.5 mg qdmonitor fluid statuscomp ensated Coronary arteriosclerosis 31318393 I25.10 clopidogre l 75 mg qdbisoprol ol 2.5 mg qd atorvastat in 80 mg qdmonitor for chest pain, sob Dehiscence of surgical wound 69067951 T81.30XD improvingc ontinue wound caref/u wound Gastroesop hageal reflux disease without esophagitis 842590754 K21.9 pantoprazo le 40 mg qdmonitor for sx control Overactive urinary bladder 596073925 N32.81 Myrbetriq 25 mg ER qdmonitor for retention Mixed anxi ety and depressive disorder 705051374 F41.8 continue zoloft 50 mg qdmonitor mood [id number] ELENA Grissom [address] [address] 12/06/2019 08:49:17 12/08/2019 11:46:40 Cerebrovascular accident 581442724 I63.89 Lovenox 40 mg qdtizanidi ne 4 mg q am and 2 mg bidatorvas tatin 80 mg qdcontinue PT/OTwaiti ng for denial letter and then we can proceed with dr to dr duran Chronic sy stolic heart failure 002283227 I50.22 bisoprolol 2.5 mg qdmonitor fluid statuscomp ensated Coronary arteriosclerosis 92509668 I25.10 clopidogre l 75 mg qdbisoprol ol 2.5 mg qd atorvastat in 80 mg qdmonitor for chest pain, sob Dehiscence of surgical wound 70720307 T81.30XD improvingc ontinue wound caref/u wound Overactive urinary bladder 810127168 N32.81 Myrbetriq 25 mg ER qdmonitor for retention Mixed anxi ety and depressive disorder 665456982 F41.8 continue zoloft 50 mg qdmonitor moodpsych prn [id number] Cynthia Barone MD [address] [address] 12/08/2019 12:49:29 12/10/2019 12:24:24 Cerebrovascular accident 056097804 I63.89 Lovenox 40 mg dailytizan idine 4 mg in morning, then 2 mg bidclopido grel 75 mg dailyatorv astatin 80 mg dailyrecom mend continued PT/OT/NEURO UROLOGIST Chronic sy stolic heart failure 696010983 I50.22 bisoprolol 2.5 mg dailywill monitor Coronary arteriosclerosis 83487844 I25.10 clopidogre l 75 mg dailybisop rolol 2.5 mg daily atorvastat in 80 mg dailyPT/OT Gastroesop hageal reflux disease without esophagitis 954728593 K21.9 pantoprazo le 40 mg dailywill monitor Overactive urinary bladder 326018364 N32.81 Myrbetriq 25 mg ER dailywill monitor Dehiscence of surgical wound 26905941 T81.30XD improvingc ontinue wound carefu wound care team Mixed anxi ety and depressive disorder 984804660 F41.8 sertraline 50 mg dailywill monitor [id number] JACKLYN XAVIER, MIKE [place] [address] [place] [address] 12/14/2019 14:02:57 12/22/2019 10:19:58 Dehiscence of surgical wound 84960185 T81.30XD well healed tylenol 500 mg q 8 hrs prn vitamin C 500 mg qd Cerebrovas cular accident 529858629 I63.9 atorvastat in 80 mg qd bisoprolol 2.5 mg qd lovenox 40 mg qd plavix 75 mg qd tizanidine 2 mg tid monitor for safety [id number] ELENA Grissom [address] [facility] [place] [address] 12/24/2019 11:13:42 12/27/2019 13:22:10 Diarrhea 13087726 R19.7 dc metamucild ecrease colace to 100 mg 1 daily - hold for loose stoolshas prn senna and MOM availableN P re-eval in one week Cerebrovas cular accident 003576067 I63.89 Lovenox 40 mg qdtizanidi ne 4 mg q am and 2 mg bidatorvas tatin 80 mg qdplavix 75 mg dailyconti nue PT/OTsuppo rtive care [id number] ELENA SALCIDO [address] [facility] [place] [address] 12/29/2019 13:48:26 01/04/2020 13:48:15 Cerebrovascular accident 584694071 I63.89 atorvastat in 80 mg qd bisoprolol 2.5 mg qd lovenox 40 mg qd plavix 75 mg qd tizanidine 2 mg bid and 4 mg qd-will increase to 4 mg tid monitor for safety Chronic sy stolic heart failure 638356318 I50.22 low Na diet bisoprolol 2.5 mg qd daily weight monitor fluid balance Dehiscence of surgical wound 75007964 T81.31XS followed by wound tylenol 500 mg q 8 hrs prn vitamin C 500 mg qd monitor for infection Dysphagia 86969999 R13.[address] eval and treat monitor for safety Gastroesop hageal reflux disease without esophagitis 625227159 K21.9 protonix 40 mg qd monitor for symptoms Mixed anxi ety and depressive disorder 284519368 F41.8 zoloft 50 mg qd and will increase to 75 mg qd monitor for decreased anxiety and tearfulnes s Overactive urinary bladder 093076023 N32.81 myrbetriq er 25 mg qd monitor for symptoms Anemia 441338921 D50.8 monitor labs Coronary arteriosclerosis 19776343 I25.10 see above [id number] ELENA Grissom [place] [address] [place] [address] 01/20/2020 09:33:43 01/25/2020 13:50:22 Cerebrovascular accident 798292802 I63.89 Lovenox 40 mg qdtizanidi ne 4 mg q am and 2 mg bidatorvas tatin 80 mg qdplavix 75 mg dailyconti nue PT/OTsuppo rtive care Advance care planning 71 0425448 Z71.89 new MOLST in chartpt is full code, undecided about dialysis and artificial nutrition. ok to have short term IV fluids [id number] ELENA Grissom [place] [address] [place] [address] 02/10/2020 12:34:19 02/15/2020 11:33:53 Cerebrovascular accident 555102031 I63.[address] Galindo about stopping Lovenox. he recommende d stopping lovenox as pt has no other risk factors. will start asa EC 325 mg 1 dailytizan idine 4 mg tidatorvas tatin 80 mg qdplavix 75 mg dailyconti nue PT/OTsuppo rtive carenurse understand s that pt needs to get out of bed everyday and will facilitate that [id number] Cynthia Barone MD [address] [place] [address] [place] [address] 02/25/2020 06:56:33 02/28/2020 14:00:19 Cerebrovascular accident 529749670 I63.89 ASA 325 mg dailytizan idine 4 mg tidclopido grel 75 mg dailyatorv astatin 80 mg dailyrecom mend continued PT/OT/NEURO UROLOGIST Chronic sy stolic heart failure 096746353 I50.22 bisoprolol 2.5 mg dailywill monitor Coronary arteriosclerosis 81702282 I25.10 clopidogre l 75 mg dailybisop rolol 2.5 mg daily atorvastat in 80 mg dailywill monitor Gastroesop hageal reflux disease without esophagitis 529984303 K21.9 pantoprazo le 40 mg dailywill monitor Mixed anxi ety and depressive disorder 710534003 F41.8 sertraline 75 mg dailywill monitor Overactive urinary bladder 221801456 N32.81 Myrbetriq 25 mg ER dailywill monitor Osteoarthritis 775433927 M19.90 APAP 500 mg q8h prnwill monitor [id number] ELENA SALCIDO [place] [address] [place] [address] 04/18/2020 16:39:37 04/25/2020 10:23:21 Cerebrovascular accident 699346003 I63.89 ASA 325 mg qdatorvast atin 80 mg qd bisoprolol 2.5 mg qd plavix 75 mg qd tizanidine 4 mg tid monitor for safety Mixed anxi ety and depressive disorder 671913983 F41.8 zoloft 75 mg qd monitor mood Overactive urinary bladder 163320231 N32.81 myrbetriq er 25 mg qd monitor for symptoms Chronic sy stolic heart failure 143450061 I50.22 low Na diet bisoprolol 2.5 mg qd daily weight monitor fluid balance [id number] Cynthia Barone MD [address] [place] [address] [place] [address] 06/09/2020 08:11:46 06/12/2020 12:24:12 Cerebrovascular accident 172564730 I63.89 ASA 325 mg dailytizan idine 4 mg tidclopido grel 75 mg dailyatorv astatin 80 mg dailyPT/OT /NEURO UROLOGIST as needed Chronic sy stolic heart failure 143461591 I50.22 bisoprolol 2.5 mg dailywill monitor Coronary arteriosclerosis 53788273 I25.10 clopidogre l 75 mg dailybisop rolol 2.5 mg daily atorvastat in 80 mg dailywill monitor Gastroesop hageal reflux disease without esophagitis 867408295 K21.9 pantoprazo le 40 mg dailywill monitor Mixed anxi ety and depressive disorder 413887999 F41.8 sertraline 75 mg dailywill monitor Overactive urinary bladder 714377384 N32.81 Myrbetriq 25 mg ER dailywill monitor [id number] KAILEY MOSLEY [address] [address] 07/26/2020 13:49:13 08/01/2020 08:31:17 Contusion of wrist 92158984 S60.212A no pain or discomfort full ROM without pain bruise starting on left outer wrist no known injury may have hit in the night on her bed rail monitor [id number] KAILEY MOSLEY [address] [address] 08/01/2020 12:50:31 08/03/2020 15:15:27 Cerebrovascular accident 783667810 I63.89 ASA 325 mg qd atorvastat in 80 mg qd bisoprolol 2.5 mg qd plavix 75 mg qd tizanidine 4 mg tid monitor for safety Mixed anxi ety and depressive disorder 640156338 F41.8 zoloft 75 mg qd monitor mood Chronic sy stolic heart failure 108461020 I50.22 low Na diet bisoprolol 2.5 mg qd monitor weight monitor fluid balance Anemia 595547512 D50.8 monitor labs [id number] KAILEY MOSLEY [address] [address] 08/11/2020 08:06:10 08/16/2020 11:02:44 Low blood pressure 90620683 I95.89 low b/p no symptoms will monitor b/p for need to change dose of b/p medication monitor b/p Chronic sy stolic heart failure 670213300 I50.22 low Na diet bisoprolol 2.5 mg qd monitor weight monitor fluid balance [id number] KAILEY MOSLEY [place] [address] [place] [address] 09/08/2020 14:28:28 09/11/2020 14:43:08 Localized eruption of skin 809398513 R21 bilateral top of breasts-bishop lf dollar size dry rash and on left side of abdomen will order hydrocorti sone bid x 1 week then eucerin after that daily monitor for resolution [id number] Cynthia Barone MD [place] [address] [place] [address] 09/20/2020 07:19:26 09/22/2020 15:03:58 Cerebrovascular accident 144496782 I63.89 ASA 325 mg daily tizanidine 4 mg tid clopidogre l 75 mg daily atorvastat in 80 mg daily PT/OT/NEURO UROLOGIST will monitor Chronic sy stolic heart failure 751828675 I50.22 bisoprolol 2.5 mg dailywill monitor Coronary arteriosclerosis 11154675 I25.10 clopidogre l 75 mg dailybisop rolol 2.5 mg daily atorvastat in 80 mg dailywill monitor Gastroesop hageal reflux disease without esophagitis 737278646 K21.9 pantoprazo le 40 mg dailywill monitor Mixed anxi ety and depressive disorder 722811873 F41.8 sertraline 25 mg daily will monitor Overactive urinary bladder 586493348 N32.81 Myrbetriq 25 mg ER dailywill monitor [id number] [place] [address] [place] [address] 11/10/2020 12:47:19 11/14/2020 13:22:20 Cerebrovascular accident 421739743 I63.89 ASA 325 mg qd atorvastat in 80 mg qd bisoprolol 2.5 mg qd plavix 75 mg qd tizanidine 4 mg tid monitor for safety Anemia 001841452 D50.8 not on replacemen t monitor labs Chronic sy stolic heart failure 152503565 I50.22 low Na diet bisoprolol 2.5 mg qd monitor weight monitor fluid balance Coronary arteriosclerosis 22505111 I25.10 see above Gastroesop hageal reflux disease without esophagitis 262541949 K21.9 protonix 40 mg qd monitor for symptoms Mixed anxi ety and depressive disorder 602907275 F41.8 zoloft 75 mg qd monitor mood Muscle spa sticity present 5675144703 77149 M62.838 tizanidine 4 mg tid monitor for pain Overactive urinary bladder [id number] N32.81 myrbetriq er 25 mg qd monitor for symptoms [id number] KAILEY MOSLEY, MUSHROOM CUTTER [address] [address] 11/23/2020 14:38:55 11/27/2020 14:06:19 Anterior chest wall pain [id number] R07.89 painful when palpated in mid upper chestwill add ibuprofen 400 mg q 8 hrs prnmonitor for improvemen t [id number] Cynthia Barone MD [address] [address] 01/05/2021 08:07:17 01/08/2021 11:13:07 Cerebrovascular accident [id number] I63.89 ASA 325 mg daily tizanidine 4 mg tid clopidogre l 75 mg daily atorvastat in 80 mg daily PT/OT/NEURO UROLOGIST prn will monitor Chronic sy stolic heart failure 728669547 I50.22 bisoprolol 2.5 mg dailywill monitor Coronary arteriosclerosis 01960749 I25.10 clopidogre l 75 mg dailybisop rolol 2.5 mg dailyatorv astatin 80 mg dailyASA 325 mg dailywill monitor Gastroesop hageal reflux disease without esophagitis 003257286 K21.9 pantoprazo le 40 mg dailywill monitor Mixed anxi ety and depressive disorder 834729031 F41.8 sertraline 50 mg daily will monitor Overactive urinary bladder 162427195 N32.81 Myrbetriq 25 mg ER dailywill monitor Osteoarthritis 602093376 M15.0 APAP 500 mg q8h prnibuprof en 400 mg q8h prnwill monitor [id number] JACKLYN XAVIER NP [place] [address] [facility] [place] [address] 01/10/2021 13:31:40 01/12/2021 11:23:04 Chronic systolic heart failure 212612380 I50.22 bisprolol 2.5 mg dailymonit or Gastroesop hageal reflux disease without esophagitis 641239563 K21.9 protonix 40 mg qd monitor for symptoms [id number] JACKLYN XAVIER NP [address] [address] 02/26/2021 16:23:03 02/28/2021 10:50:05 Cerebrovascular accident [id number] I63.89 atorvastat in 80 mg qd plavix 75 mg qd tizanidine 4 mg tid monitor for safety Chronic sy stolic heart failure 563714452 I50.22 monitor Coronary arteriosclerosis 47378471 I25.10 asa 325 mg daily Dysphagia 59961725 R13.1 9 speech eval prn Gastroesop hageal reflux disease without esophagitis 611001153 K21.9 protonix 40 mg qd monitor for symptoms Mixed anxi ety and depressive disorder 498156252 F41.8 Zoloft 75 mg daily monitor and chart any changes in mood or behaviors Muscle spa sticity present [id number] 99759 M62.838 Tizanadine 4 mg am-2 mg tidibuprof en 400 mg q8hr prnPT prn Overactive urinary bladder 865393999 N32.81 myrbetriq 25 mg daily Anemia 060548294 D50.8 monitor labsmvi daily [id number] Cynthia Barone MD [address] [address] 05/18/2021 08:10:37 05/21/2021 15:18:01 Cerebrovascular accident [id number] I63.89 ASA 325 mg daily clopidogre l 75 mg daily atorvastat in 80 mg daily PT/OT/NEURO UROLOGIST prnsee meds for chronic pain for muscle spasmwill monitor Chronic sy stolic heart failure 926669398 I50.22 bisoprolol 2.5 mg dailywill monitor Coronary arteriosclerosis 01142378 I25.10 clopidogre l 75 mg dailybisop rolol 2.5 mg dailyatorv astatin 80 mg dailyASA 325 mg dailywill monitor Gastroesop hageal reflux disease without esophagitis 653294958 K21.9 pantoprazo le 40 mg dailywill monitor Mixed anxi ety and depressive disorder 961457854 F41.8 sertraline 100 mg daily will monitor Overactive urinary bladder 953822231 N32.81 Myrbetriq 25 mg ER dailywill monitor Chronic pain 99175010 G8 9.29 tizanidine 4 mg tidibuprof en 400 mg q8h prnAPAP 500 mg q8h prnwill monitorPT/ OT prn [id number] July Jung, MUSHROOM CUTTER [address] [address] 07/11/2021 13:41:03 07/13/2021 14:35:11 Cerebrovascular accident [id number] I63.89 ASA 325 mg daily clopidogre l 75 mg daily atorvastat in 80 mg dailyAble to transfer from chair to bed independen tlyAppears stableMoni tor Chronic sy stolic heart failure 131731435 I50.22 bisoprolol 2.5 mg dailywill monitor Coronary arteriosclerosis 84315776 I25.10 clopidogre l 75 mg dailybisop rolol 2.5 mg dailyatorv astatin 80 mg dailyASA 325 mg dailywill monitor Gastroesop hageal reflux disease without esophagitis 158506180 K21.9 pantoprazo le 40 mg dailyDenie s sxs todaywill monitor Mixed anxi ety and depressive disorder 521781265 F41.8 sertraline 100 mg daily will monitor Chronic pain 45805761 G8 9.29 tizanidine 4 mg tidibuprof en 400 mg q8h prnAPAP 500 mg q8h prnwill monitorRep orts pain well controlled [id number] JACKLYN XAVIER NP [address] [address] 08/24/2021 08:36:33 08/27/2021 10:14:05 Cerebrovascular accident [id number] I63.89 atorvastat in 80 mg qdplavix 75 mg qdtizanidi ne 4 mg tidmonitor for safetymoni tor neurosBLE equal Chronic sy stolic heart failure 048421830 I50.22 monitor Coronary arteriosclerosis 37601411 I25.10 asa 325 mg daily Dysphagia 57612668 R13.1 9 speech eval prn Gastroesop hageal reflux disease without esophagitis 350846177 K21.9 protonix 40 mg qd monitor for symptoms Mixed anxi ety and depressive disorder 427891283 F41.8 Zoloft 10 mg daily monitor and chart any changes in mood or behaviors Muscle spa sticity present 5795592578 12883 M62.838 Tizanadine 4 mg am-2 mg tidibuprof en 400 mg q8hr prnPT prn Overactive urinary bladder 236018692 N32.81 myrbetriq 25 mg daily Anemia 094637068 D50.8 monitor labsmvi dailyvit c 500 daily [id number] JACKLYN XAVIER NP [place] [address] [place] [address] 08/27/2021 08:56:39 08/29/2021 10:38:15 Cerebrovascular accident 059049161 I63.89 atorvastat in 80 mg qdplavix 75 mg qdtizanidi ne 4 mg tidmonitor for safetymoni tor neurosBLE equal Chronic sy stolic heart failure 677329474 I50.22 monitor Coronary arteriosclerosis 66034575 I25.10 asa 325 mg daily Dysphagia 88276843 R13.1 9 speech eval prn Gastroesop hageal reflux disease without esophagitis 662222614 K21.9 protonix 40 mg qd monitor for symptoms Mixed anxi ety and depressive disorder 479052168 F41.8 Zoloft 10 mg daily monitor and chart any changes in mood or behaviors Muscle spa sticity present 8870414458 56455 M62.838 Tizanadine 4 mg am-2 mg tidibuprof en 400 mg q8hr prnPT prn Overactive urinary bladder 055929265 N32.81 myrbetriq 25 mg daily Anemia 552001023 D50.8 monitor labsmvi dailyvit c 500 daily Health Concerns Section Related Observation LastModified by Organization Detai ls LastModified Time None Recorded Concern Status LastModified by Organization Details LastModified Time None Recorded Advance Directives Directive Y: FULL CODE-undecided about dialysis or nutrition-use hydration short term Payers Insurance Date Sequence Insurance Name Policy Number Policy Dao Covered Member ID Dao Member ID Guarantor Name 08/27/2021 1 [place] [facility] Rach Bettencourt [id number] Rach Bettencourt 10/20/2020 2 [facility] Rach Bettencourt [id number] Rach Bettencourt 07/12/2020 1 [facility] [id number] Rach Bettencourt [id number] Rach Bettencourt 09/06/2020 2 [facility] Rach Bettencourt [id number] Rach Bettencourt Notes Date Note Type Note Provider Name and Address Organization Details Recorded Time 02/26/2021 text/html ROS as noted in the HPI seen today for routine rounding-60 yof LTC resident admitted to [facility] on 10/16/19 for continued care and rehab after intensive acute rehab at [facility] for acute CVA.Nursing report that patient was sent to [facility] ER on 12/27/20 with renal colic and was found to a 2 mm kidney stone. She returned to facility later that day. Social service has been discussing discharge plans. 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 Lungs clear, eating and drinking well. JACKLYN XAVIER NP [address] [facility], [address], [place], [address], [employer] 02/26/2021 17:08:25 05/18/2021 text/html ROS as noted in the HPI This 60 year old female correction care resident is seen today for routine rounding visit. Medical history is remarkable for history of CVA July 2019, CHF, CAD s/p [place] and CABG, GERD, overactive bladder. Overall patient has been stable with no recent acute medical issues. She is hoping to be discharged into the community and has been working with members of her taoism to help find an apartment. She has a rn case management at [facility]. Today patient is sitting in a chair in her room in [facility]. She is thrilled to let me know that she has been accepted somewhere - but she doesn't remember the name of the place. She is not sure when she will be moving. Otherwise, she feels okay. MOLST: full code - signed 01/20/20 Cynthia Barone MD [address] [facility], [address], [place], [address], [employer] 05/18/2021 13:24:08 07/11/2021 text/html 60 yo female LTC resident due for routine rounding. Patient with hx CVA, CAD, CHF, gerd, anxiety/depressio n, overactive bladder. Currently stable at baseline. Patient denies complaints today. July cruz, [employer] [facility] [employer] 07/11/2021 15:19:45 08/24/2021 text/html ROS as noted in the HPI seen today for acute rounding visit-60 yof LTC resident admitted to [facility] on 10/16/19 for continued care and rehab after intensive acute rehab at [facility] for acute CVA. 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 Lungs clear, eating and drinking well, she said her right leg felt heavy and sore last night but it has dimished, strength to feet equal, she is due for discharge next week JACKLYN XAVIER NP [address] [facility], [address], [place], [address], [employer] 08/24/2021 13:00:31 08/27/2021 text/html ROS as noted in the HPI seen today for discharge summary-60 yof LTC resident admitted to [facility] on 10/16/19 for continued care and rehab after intensive acute rehab at [facility] for acute CVA. CAOx3 sitting up in wheelchair, she is in the bathroom brushing her teeth, she needs minimal assist with acitivity, her previous complaint of heavy legs has resolved and she denies any discomfort or distress, she is eating and drinking well, states she is ready to go home JACKLYN XAVIER NP [address] [facility], [address], [place], [address], [employer] 08/27/2021 09:05:37 OBGyn Episode No OBEpisode recorded.
--- OUTSIDE RECORDS SUMMARY | 2025-01-25 15:03 | XMS_ITS | Clinical Summary ---
Demographics Address [address] [place] [address] Home Phone Mobile Phone Preferred Language unv Marital Status Unknown Restoration Affiliation Unknown Race Unknown Ethnic Group Not or Lati no Author Organization [facility] Address [address] [place] [phone] Phone Care Team Providers Care Sap Consultant Name Role Phone Unavailable Primary Care Provider Unavailabl e Allergies Active Allergy Reactions Criticality Noted Date Comments Fluticasone Rash 01/17/2009 Social History Tobacco Use Types Packs/Day Years Used Date Smoking Tobacco: Never Assessed Education Answer Date Recorded Are you interested in more education? Not on ashley e 08/25/2024 Are you concerned about learning? Not on file 08/25/2024 No 08/25/2024 No 08/25/2024 Digital Access Answer Date Recorded No 08/25/2024 No 08/25/2024 Reliable internet access at home? Not on file 08/25/2024 Device with a working camera? Not on file Comments Unknown Sex and Gender Information Value Date Recorded Sex Assigned at Not on file Legal Sex Female 5:30 PM EST Gender Identity Not on file Sexual Orientation Not on file Plan of Treatment Not on file Medical Devices Not on file [place] [id number] MEDICARE PART A & B MEDICARE PART A & B MEDICARE PART A & B * Guarantor: Rach Bettencourt Account Type Relation to Patient Date of Phone Billing Address Personal/Family Self [address] [place] [address] MEDICARE PART A & B * Guarantor: Rach Bettencourt Account Type Relation to Patient Date of Phone Billing Address Personal/Family Self 1960 [address] [place] [address] MEDICARE PART A & B * Guarantor: Rach Bettencourt Account Type Relation to Patient Date of Phone Billing Address Personal/Family Self [address] [place] [address] * Guarantor: Rach Bettencourt Account Type Relation to Patient Date of Phone Billing Address Personal/Family Self [address] [place] [address] * Guarantor: Rach Bettencourt Account Type Relation to Patient Date of Phone Billing Address Personal/Family Self 1960 [address] [place] [address] Additional Source Comments The information contained in this document represents components of the legal health record. It is not the complete legal health record.[facility]
[2025-01-25 16:48] VITALS: BP 123/58; PULSE 65; RESP 18; TEMP 37; O2SAT 98
--- NOTE | 2025-01-25 17:03 | PC.NURSE ---
EMS contacted ED to report delay in picking up the patient from the ED. New ETA 18:30 today. Awaiting EMS to transport home due to mobility issues/wheelchair use.
[2025-01-25 18:31] VITALS: BP 123/58; PULSE 65; RESP 18; TEMP 37; O2SAT 98
== END 2025-01-25 18:31 | disposition home or self-care (01) ==
PROVIDERS: Physician Assistant; Emergency Provider Emergency Medicine; PCP Family Medicine
DX: M79.651 Pain in right thigh (principal); I10 Essential (primary) hypertension; E78.00 Pure hypercholesterolemia, unspecified; Z87.891 Personal history of nicotine dependence; Z79.899 Other long term (current) drug therapy
CPT/HCPCS: 36415; 73552; 80053; 85025; 85610; 85730; 93971; 99284

== ENCOUNTER → 2025-01-25 11:31 | Outpatient (BNV) | payer MEDICARE, MEDICAID, SELFPAY | PROVIDERS: Emergency Provider Emergency Medicine; PCP Family Medicine; Visit Provider Radiology Diagnostic Radiology | DX: M79.651 Pain in right thigh (principal) | CPT/HCPCS: 73552; 93971 ==